=== PATIENT | male | born 1955 | race Caucasian/White ===

== ENCOUNTER 2016-05-16 10:43 | Inpatient (IN) | payer OTHER, MEDICARE ==
[~2016-05-16] VITALS: Ht 195.6 cm; Wt 99.0 kg
[~2016-05-16 10:43] MED LIST: ARIP1TAB87 PO; ASPI325T PO; DILT30 PO; SERT100 PO
[2016-05-16 10:50] VITALS: BP 138/86; PULSE 76; RESP 16; TEMP 98.7; O2SAT 98
[2016-05-16] MEDS ORDERED: TETANUS/DIPHTHERIA TOXOID ADULT 0.5 ML VIAL IM ONE (11:15)
[2016-05-16] MEDS ORDERED: CLINDAMYCIN INJ 600 MG in SODIUM CHLORIDE 0.9% INJ 100 ML IV ONE (11:15)
[2016-05-16] MEDS ORDERED: KETOROLAC TROMETHAMINE 30 MG/ML (IVP) VIAL IVP ONE (11:15)
[2016-05-16 11:39] LABS: AUTOMATED NEUTROPHIL # 9.3 TH/MM3 (1.8-7.7); BASOPHIL # 0.1 TH/MM3 (0-0.2); BASOPHIL % 0.7 % (0.0-2.0); EOSINOPHIL % 0.4 % (0.0-4.0); HEMATOCRIT 41.4 % (39.0-51.0); HEMO FLAGS DIFF FINAL; LYMPHOCYTE # 1.5 TH/MM3 (1.0-4.8); MEAN CELL VOLUME 82.4 FL (80.0-100.0); MEAN CORPUSCULAR HEMOGLOBIN 28.2 PG (27.0-34.0); MEAN CORPUSCULAR HGB CONC 34.2 % (32.0-36.0); MONO % 7.9 % (0.0-8.0); PLATELET COUNT 189 TH/MM3 (150-450); RED BLOOD COUNT 5.02 MIL/MM3 (4.50-5.90); RED CELL DISTRIBUTION WIDTH 13.7 % (11.6-17.2); WHITE BLOOD COUNT 11.9 TH/MM3 (4.0-11.0)
--- NOTE | 2016-05-16 11:41 | PD ---
HPI Chief Complaint: Skin Problem Time Seen by Provider: 11:37 Travel History International Travel<30 days: No Contact w/Intl Traveler<30days: No Traveled to known affect area: No History of Present Illness HPI 60-year-old male that presents to the ED for evaluation of possible infection to his right second toe and foot. Patient has had this for almost a week now. Per patient he has a history of cellulitis in that same toe after an injury about 10 years ago. Per patient he had 2 surgeries on it and he never lost a toe. Per patient since Thursday he was using some sandals and per patient he believes that this irritated his skin causing the infection. He denies any history of IV drug abuse. He does have a history of schizophrenia and states that he takes medications for this. He has no duco polisher. He came here with family member who was able to give him a ride here. He has an allergy to niacin. States the pain is 10 out of 10 and gets worse with touch. Denies any chest pain or shortness of breath. No fevers chills or sweats. Patient able to move the toes with exception of the second toe where most of the infection. PFSH Past Medical History Arthritis: No Asthma: No Blood Disorders: No Depression: Yes Heart Rhythm Problems: No Cancer: No Cardiovascular Problems: No High Cholesterol: No Chest Pain: No Congestive Heart Failure: No COPD: No Cerebrovascular Accident: No Endocrine: No GERD: No Genitourinary: No Headaches: No Hepatitis: No Hiatal Hernia: No Hypertension: No Immune Disorder: No Musculoskeletal: No Neurologic: No Psychiatric: Yes Reproductive: No Respiratory: No Migraines: No Myocardial Infarction: No Renal Failure: No Schizophrenia: Yes (PARANOID) Seizures: No Sleep Apnea: No Ulcer: No Past Surgical History Abdominal Surgery: No AICD: No Appendectomy: No Arteriovenous Shunt: No Cardiac Surgery: No Cholecystectomy: No Ear Surgery: No Endocrine Surgery: No Eye Surgery: No Genitourinary Surgery: No Gynecologic Surgery: No Insulin Pump: No Joint Replacement: No Oral Surgery: No Pacemaker: No Thoracic Surgery: No Tonsillectomy: Yes Other Surgery: Yes Social History Alcohol Use: No Tobacco Use: Yes (PACK A DAY) Substance Use: No Allergies-Medications (Allergen,Severity, Reaction): Coded Allergies: Niacin (Verified Allergy, Intermediate, 04/17/15) Reported Meds & Prescriptions Reported Meds & Active Scripts Active Diltiazem Hcl (Diltiazem HCl) 30 Mg Tab 30 Mg PO QID 30 Days Aspirin 325 Mg Tab (Aspirin) 325 Mg Tab 325 Mg PO DAILY Reported Zoloft (Sertraline HCl) 100 Mg Tab 100 Mg PO DAILY Abilify 15 Mg Tab (Aripiprazole) 15 Mg Tab 30 Mg PO DAILY Review of Systems Except as stated in HPI: all other systems reviewed are Neg Physical Exam Narrative GENERAL: SKIN: Warm and dry. HEAD: Atraumatic. Normocephalic. EYES: Pupils equal and round. No scleral icterus. No injection or drainage. ENT: No nasal bleeding or discharge. Mucous membranes pink and moist. Tongue is midline. No Uvula deviation. NECK: Trachea midline. No JVD. CARDIOVASCULAR: Regular rate and rhythm. No murmurs, S3, S4. RESPIRATORY: No accessory muscle use. Clear to auscultation. Breath sounds equal bilaterally. GASTROINTESTINAL: Abdomen soft, non-tender, nondistended. Hepatic and splenic margins not palpable. MUSCULOSKELETAL: Extremities without clubbing, cyanosis, or edema. No obvious deformities. Full range of motion of the lower extremities bilaterally. Patient does have significant swelling on the right second toe which is twice the size of the other toes. Purulence and erythema noted. Very warm to touch. Tender to touch. Patient does have 2+ pulses bilaterally. Patient can move the toes secondary to the swelling. Erythema is going through the dorsal aspect of the foot. NEUROLOGICAL: Awake and alert. No obvious cranial nerve deficits. Motor grossly within normal limits. Five out of 5 muscle strength in the arms and legs. Normal speech. PSYCHIATRIC: Appropriate mood and affect; insight and judgment normal. Data Data Last Documented VS Vital Signs Date Time Temp Pulse Resp B/P Pulse Ox O2 Delivery O2 Flow Rate FiO2 05/16/16 10:50 98.7 76 16 138/86 98 Orders Basic Metabolic Panel (Bmp) (05/16/16 11:08) Complete Blood Count With Diff (05/16/16 11:08) Blood Culture (05/16/16 11:08) Wound Culture And Gram Stain (05/16/16 11:08) Iv Access Insert/Monitor (05/16/16 11:08) Wound Care (05/16/16 11:08) Ketorolac Inj (Toradol Inj) (05/16/16 11:15) Clindamycin Inj (Cleocin Inj) (05/16/16 11:15) Tetanus/Diphtheria Tox Adult (Tetanus/Di (05/16/16 11:15) C-Reactive Protein (Crp) (05/16/16 11:08) Foot, Complete ([id number]) (05/16/16 ) Lactic Acid (05/16/16 11:23) Admit Order (Ed Use Only) (05/16/16 12:41) Consult Podiatry (05/16/16 ) Labs Laboratory Tests Test 05/16/16 11:20 White Blood Count 11.9 TH/MM3 Red Blood Count 5.02 MIL/MM3 Hemoglobin 14.1 GM/DL Hematocrit 41.4 % Mean Corpuscular Volume 82.4 FL Mean Corpuscular Hemoglobin 28.2 PG Mean Corpuscular Hemoglobin 34.2 % Concent Red Cell Distribution Width 13.7 % Platelet Count 189 TH/MM3 Mean Platelet Volume 9.3 FL Neutrophils (%) (Auto) 78.0 % Lymphocytes (%) (Auto) 13.0 % Monocytes (%) (Auto) 7.9 % Eosinophils (%) (Auto) 0.4 % Basophils (%) (Auto) 0.7 % Neutrophils # (Auto) 9.3 TH/MM3 Lymphocytes # (Auto) 1.5 TH/MM3 Monocytes # (Auto) 0.9 TH/MM3 Eosinophils # (Auto) 0.0 TH/MM3 Basophils # (Auto) 0.1 TH/MM3 CBC Comment DIFF FINAL Differential Comment Sodium Level 136 MEQ/L Potassium Level 3.6 MEQ/L Chloride Level 100 MEQ/L Carbon Dioxide Level 30.8 MEQ/L Anion Gap 5 MEQ/L Blood Urea Nitrogen 18 MG/DL Creatinine 1.15 MG/DL Estimat Glomerular Filtration 65 ML/MIN Rate Random Glucose 109 MG/DL Lactic Acid Level 0.9 mmol/L Calcium Level 8.5 MG/DL C-Reactive Protein 7.06 MG/DL MDM Medical Decision Making Medical Screen Exam Complete: Yes Emergency Medical Condition: Yes Medical Record Reviewed: Yes Interpretation(s) CBC & BMP Diagram 05/16/16 11:20 CRP highly elevated xray of the right foot showed bony changes on the 2nd toe concerning for osteomyelitis Differential Diagnosis Cellulitis versus ostium myelitis versus MRSA Narrative Course 60-year-old male that presents to the ED for evaluation of right toe infection. Patient was properly examined and was found to have signs and symptoms consistent with gangrene and likely also myelitis. Patient will likely require surgery for amputation versus long stay of antibiotics. Initial workup was started. Patient was started on IV antibiotics and pain medication. Last and shows slightly elevated as well as a CRP slightly elevated at 7. X-ray did show similar changes to the second toe. Because of significant infection and history of do recommend admission. Patient is agreeable with this plan. Call was placed to podiatry and [facility] as patient is [employer].. Dr. Adams called back and agrees to admission. I put a consult to podiatry Dr. Davidson who I contacted and recommends admission to medicine for surgery tomorrow, IV antibiotics, no MRI. Diagnosis Primary Impression: Osteomyelitis Qualified Code: M86.171 - Acute osteomyelitis of right foot Additional Impression: Cellulitis Qualified Code: L03.115 - Cellulitis of right lower extremity Admitting Information Admitting Physician Requests: Admit Ugo Wilson May 16, 2016 11:41
[2016-05-16 11:55] LABS: BICARBONATE 30.8 MEQ/L (21.0-32.0); POTASSIUM 3.6 MEQ/L (3.5-5.1)
--- NOTE | 2016-05-16 12:48 | RADRPT ---
EXAM DATE/TIME: 05/16/2016 11:37 [facility] COMPARISON: No previous studies available for comparison. INDICATIONS: Right foot pain with swelling and ulcerations on toes. MEDICAL HISTORY: None. SURGICAL HISTORY: Right toes surgery 30 years ago x 2. ENCOUNTER: Initial ACUITY: >1 year PAIN SCORE: 10/10 LOCATION: Right Foot/toes. FINDINGS: There moderate hallux valgus deformity evident. There is destructive process involving the distal tuft of the second toe. Deformity is seen at the s econd interphalangeal joint. Findings are suspicious for osteomyelitis. CONCLUSION: Findings suspicious for osteomyelitis second toe. Mario Chavez MD FACR on May 16, 2016 at 12:08 Board Certified Radiologist. This report was verified electronically.
--- NOTE | 2016-05-16 13:14 | HHI.HP ---
[facility] Admission Diagnosis right second toe osteomyelitis with cellulitis Diagnoses: (1) Gangrene of toe (2) Cellulitis Chief Complaint: right painful second toe Travel History International Travel<30 Days: No Contact w/Intl Traveler <30 Da: No Traveled to Known Affected Are: No History of Present Illness 60-year-old male with a history of schizophrenia, known history of right second toe infection present to the ED for evaluation of worsening right second toe pain rated 10 out of 10 in intensity associated with swelling, redness and purulent discharge. Denies any febrile episode.Patient states he had two operations on his right 2nd toe over the past 12 years with significant improvement. However about 1 week ago he noticed increased swelling, redness and purulent discharge. He tried peroxide without any improvement. He noticed pain with ambulation and weight bearing on the right foot.patient denies any GI bleeding, SOB or chest pain Review of Systems Other Other 12 systems reviewed and are negative except for the one mentioned in the history of present illness Past Family Social History Past Medical History Schizophrenia, tobacco dependency Past Surgical History Patient had a tonsillectomy Reported Medications Diltiazem Hcl (Diltiazem HCl) 30 Mg Tab 30 Mg PO QID 30 Days Aspirin 325 Mg Tab (Aspirin) 325 Mg Tab 325 Mg PO DAILY Reported Zoloft (Sertraline HCl) 100 Mg Tab 100 Mg PO DAILY Abilify 15 Mg Tab (Aripiprazole) 15 Mg Tab 30 Mg PO DAILY Allergies: Coded Allergies: Niacin (Verified Allergy, Intermediate, 04/17/15) Family History Father had a heart attack in his 70s Social History Alcohol Use: No Tobacco Use: Yes (PACK A DAY) Substance Use: No Physical Exam Vital Signs Vital Signs Date Time Temp Pulse Resp B/P Pulse Ox O2 Delivery O2 Flow Rate FiO2 05/16/16 10:50 98.7 76 16 138/86 98 Physical Exam GENERAL: This is a well-nourished, well-developed patient, in no apparent distress. SKIN: swelling on the right second toe which is twice the size of the other toes. Purulence and erythema noted. Very warm to touch. Erythema extending through the dorsal aspect of the foot HEAD: Atraumatic. Normocephalic. No temporal or scalp tenderness. EYES: Pupils equal round and reactive. Extraocular motions intact. No scleral icterus. No injection or drainage. ENT: Nose without bleeding, purulent drainage or septal hematoma. Throat without erythema, tonsillar hypertrophy or exudate. Uvula midline. Airway patent. NECK: Trachea midline. No JVD or lymphadenopathy. Supple, nontender, no meningeal signs. CARDIOVASCULAR: Regular rate and rhythm without murmurs, gallops, or rubs. RESPIRATORY: Clear to auscultation. Breath sounds equal bilaterally. No wheezes , rales, or rhonchi. GASTROINTESTINAL: Abdomen soft, non-tender, nondistended. No hepato-splenomegaly , or palpable masses. No guarding. MUSCULOSKELETAL: Extremities without clubbing, cyanosis, or edema. No joint tenderness, effusion, or edema noted. No calf tenderness. Negative Homans sign bilaterally. NEUROLOGICAL: Awake and alert. Cranial nerves II through XII intact. Motor and sensory grossly within normal limits. Five out of 5 muscle strength in all muscle groups. Normal speech. Laboratory Laboratory Tests Test 05/16/16 11:20 White Blood Count 11.9 Red Blood Count 5.02 Hemoglobin 14.1 Hematocrit 41.4 Mean Corpuscular Volume 82.4 Mean Corpuscular Hemoglobin 28.2 Mean Corpuscular Hemoglobin 34.2 Concent Red Cell Distribution Width 13.7 Platelet Count 189 Mean Platelet Volume 9.3 Neutrophils (%) (Auto) 78.0 Lymphocytes (%) (Auto) 13.0 Monocytes (%) (Auto) 7.9 Eosinophils (%) (Auto) 0.4 Basophils (%) (Auto) 0.7 Neutrophils # (Auto) 9.3 Lymphocytes # (Auto) 1.5 Monocytes # (Auto) 0.9 Eosinophils # (Auto) 0.0 Basophils # (Auto) 0.1 CBC Comment DIFF FINAL Differential Comment Sodium Level 136 Potassium Level 3.6 Chloride Level 100 Carbon Dioxide Level 30.8 Anion Gap 5 Blood Urea Nitrogen 18 Creatinine 1.15 Estimat Glomerular Filtration 65 Rate Random Glucose 109 Lactic Acid Level 0.9 Calcium Level 8.5 C-Reactive Protein 7.06 Date/Time Procedure Status Source Growth 05/16/16 11:20 Aerobic Blood Culture Received Blood Peripheral Pending 1/6/17 11:20 Anaerobic Blood Culture Received Blood Peripheral Pending Result Diagram: 05/16/16 1120 05/16/16 1120 Assessment and Plan Problem List: (1) Cellulitis ICD Code: L03.90 Status: Acute (2) Gangrene of toe ICD Code: I96 Status: Acute (3) Osteomyelitis ICD Code: M86.9 Status: Acute Assessment and Plan 60-year-old male with Right second toe gangrene with osteomyelitis and cellulitis of the foot: Outside radiographic studies reveals osteomyelitis of phalanx .Status post Clindamycin IV 1, start vancomycin and Zosyn pending culture report. Podiatry consulted and plan for amputation of the toe tomorrow 05/17/16. Check CHALO. Provide pain medication accordingly. Will keep nothing by mouth after midnight Leukocytosis: Secondary to above infectious process, monitor CBC History of schizophrenia: Resume outpatient medications DVT prophylaxis: Heparin Code Status Full code Discussed Condition With Patient, ED physician Physician Certification 2 Midnight Certification Type: Admission for Inpatient Services Order for Inpatient Services The services are ordered in accordance with Medicare regulations or non- Medicare payer requirements, as applicable. In the case of services not specified as inpatient-only, they are appropriately provided as inpatient services in accordance with the 2-midnight benchmark. Estimated LOS (days): 2 days is the estimated time the patient will need to remain in the hospital, assuming treatment plan goals are met and no additional complications. Post-Hospital Plan: Not yet determined Problem Qualifiers (1) Cellulitis: Qualified Code: L03.115 - Cellulitis of right lower extremity (2) Osteomyelitis: Qualified Code: M86.171 - Acute osteomyelitis of right foot Jeremiah Adams MD May 16, 2016 13:14 Jeremiah Adams MD May 16, 2016 13:14
--- NOTE | 2016-05-16 14:08 | PD.POD.CON ---
Patient Intake Chief Complaint Infection and gangrene second toe right foot Consult Requested by Dr. Adams Reason for Consult Evaluation and treatment of infection right second toe Primary Care Physician [facility] History of Present Illness Patient is a 60-year-old male who presented to the emergency department with gangrene and infection of the second toe of the right foot. He states is been getting worse over the last 3 days. He states he has had surgery on the toe many times in the past and saw [place]. Radiographs show osteomyelitis of phalanx. There is a strong necrotic odor coming from the toe. Coded Allergies: Niacin (Verified Allergy, Intermediate, 04/17/15) Preferred Language to Discuss: Andorran Barriers to Learning: None Teaching Method: Discussion Vital Signs Date Time Temp Pulse Resp B/P Pulse Ox O2 Delivery O2 Flow Rate FiO2 05/16/16 10:50 98.7 76 16 138/86 98 Pain scale used: 0-10 numeric scale Pain score: 1 Medications Current Medications Ketorolac Tromethamine 30 mg 30 mg ONCE ONCE IVP ; Start 05/16/16 at 11:15; Stop 05/16/16 at 11:16; Status DC Clindamycin Phosphate/Sodium Chloride (Cleocin Inj/NS Inj) 104 ml @ 200 mls/hr ONCE ONCE IV ; Start 05/16/16 at 11:15; Stop 05/16/16 at 11:46; Status DC Tetanus/ Diphtheria Toxoids (Tetanus/ Diphtheria Tox Adult) 0.5 ml ONCE ONCE IM ; Start 05/16/16 at 11:15; Stop 05/16/16 at 11:16; Status DC Past, Family & Social History Past Medical History [facility] Reviewed: Yes Review of Systems Constitutional: COMPLAINS OF: Good general health Exam-Podiatry Constitutional General appearance: comfortable Nutritional status: normal Orientation: alert and oriented x3 Dermatological Exam Skin Temp - Right: Cool Skin Texture - Right: Within Normal Limits Skin Elasticity - Right: Within Normal Limits Skin Tugor - Right: Within Normal Limits Hair Growth - Right: Within Normal Limits Pigmentation - Right: Within Normal Limits Skin Temp - Left: Cool Skin Texture - Left: Within Normal Limits Skin Elasticity - Left: Within Normal Limits Skin Tugor - Left: Within Normal Limits Hair Growth - Left: Within Normal Limits Pigmentation - Left: Within Normal Limits Vascular/Lymphatic Exam Details All pulses are diminished bilateral feet Neurologic Exam Details No neurological deficit Musculoskeletal Exam Details Necrotic gangrenous second toe right foot with gangrenous changes and osteomyelitis on x-ray Muscle Strength Dorsiflexion (Right): Normal Plantarflexion (Right): Normal Inversion (Right): Normal Eversion (Right): Normal Digital (Right): Normal Dorsiflexion (Left): Normal Plantarflexion (Left): Normal Inversion (Left): Normal Eversion (Left): Normal Digital (Left): Normal Foot Range of Motion Dorsiflexion (Right): Normal Plantarflexion (Right): Normal Inversion (Right): Normal Eversion (Right): Normal Digital (Right): Normal Dorsiflexion (Left): Normal Plantarflexion (Left): Normal Inversion (Left): Normal Eversion (Left): Normal Digital (Left): Normal Joint Instability Hammer Toe: Toe #2 (R) Lab and Radiology Results Laboratory Laboratory Tests Test 05/16/16 11:20 White Blood Count 11.9 TH/MM3 Red Blood Count 5.02 MIL/MM3 Hemoglobin 14.1 GM/DL Hematocrit 41.4 % Mean Corpuscular Volume 82.4 FL Mean Corpuscular Hemoglobin 28.2 PG Mean Corpuscular Hemoglobin 34.2 % Concent Red Cell Distribution Width 13.7 % Platelet Count 189 TH/MM3 Mean Platelet Volume 9.3 FL Neutrophils (%) (Auto) 78.0 % Lymphocytes (%) (Auto) 13.0 % Monocytes (%) (Auto) 7.9 % Eosinophils (%) (Auto) 0.4 % Basophils (%) (Auto) 0.7 % Neutrophils # (Auto) 9.3 TH/MM3 Lymphocytes # (Auto) 1.5 TH/MM3 Monocytes # (Auto) 0.9 TH/MM3 Eosinophils # (Auto) 0.0 TH/MM3 Basophils # (Auto) 0.1 TH/MM3 CBC Comment DIFF FINAL Differential Comment Laboratory Tests Test 05/16/16 11:20 Sodium Level 136 MEQ/L Potassium Level 3.6 MEQ/L Chloride Level 100 MEQ/L Carbon Dioxide Level 30.8 MEQ/L Anion Gap 5 MEQ/L Blood Urea Nitrogen 18 MG/DL Creatinine 1.15 MG/DL Estimat Glomerular Filtration 65 ML/MIN Rate Random Glucose 109 MG/DL Lactic Acid Level 0.9 mmol/L Calcium Level 8.5 MG/DL C-Reactive Protein 7.06 MG/DL Microbiology Date/Time Procedure Status Source Growth 05/16/16 11:15 Aerobic Blood Culture Received Blood Peripheral Pending 05/16/16 11:15 Anaerobic Blood Culture Received Blood Peripheral Pending 05/16/16 11:20 Aerobic Blood Culture Received Blood Peripheral Pending 05/16/16 11:20 Anaerobic Blood Culture Received Blood Peripheral Pending Assessment/Plan Problem List: (1) Osteomyelitis Status: Acute (2) Gangrene of toe Status: Acute Additional Plans & Procedures PLAN: We'll go to the OR tomorrow morning at 8 AM for an amputation of the second toe right foot. The incision site will be left open for packing. Discussed planned procedures with the patient. He is agreeable to proceed. I will obtain arterial segmental Dopplers to evaluate his vascular status. Consent orders done. Discussed with nurse. Nothing by mouth after midnight. Problem Qualifiers (1) Osteomyelitis: Qualified Code: M86.171 - Acute osteomyelitis of right foot Jeremiah Davidson DPM May 16, 2016 14:08
[2016-05-16] MEDS ORDERED: SENNOSIDES 8.6 MG TAB PO PRN (14:15)
[2016-05-16] MEDS ORDERED: ENALAPRILAT 1.25 MG/ML VIAL IV PUSH PRN (14:15)
[2016-05-16] MEDS ORDERED: ACETAMINOPHEN/HYDROcodone 325 MG/5 MG TAB PO PRN (14:15)
[2016-05-16] MEDS ORDERED: NALOXONE HCL 0.4 MG/ML AMP IV PRN (14:15)
[2016-05-16] MEDS ORDERED: RESP: ALBUTEROL 2.5 MG/IPRATROPIUM 0.5 MG NEB (PRN) NEB (14:15)
[2016-05-16] MEDS ORDERED: ONDANSETRON HCL 4 MG/2 ML VIAL IVP PRN (14:15)
[2016-05-16] MEDS ORDERED: SODIUM CHLORIDE 0.9% FLUSH 5 ML FLUSH FLUSH PRN (14:15)
[2016-05-16] MEDS ORDERED: ACETAMINOPHEN 325 MG TAB PO PRN ×2 (14:15)
[2016-05-16] MEDS ORDERED: Vancomycin Consult Pharmacy 1 EA OTHER SCH (14:15)
[2016-05-16] MEDS ORDERED: VANCOMYCIN INJ 1,000 MG in SODIUM CHLOR 0.9% 250 ML INJ 250 ML IV SCH (14:15)
--- NOTE | 2016-05-16 14:32 | RADRPT ---
EXAM DATE/TIME: 05/16/2016 14:19 [facility] COMPARISON: CHEST PA & LAT, April 17, 2015, 17:57. INDICATIONS : Shortness of breath. MEDICAL HISTORY : None. SURGICAL HISTORY : None. ENCOUNTER: Initial ACUITY: 1 day PAIN SCORE: 5/10 LOCATION: chest FINDINGS: PA and lateral views of the chest demonstrate the lungs to be symmetrically aerated without evidence of mass, infiltrate or effusion. The cardiomediastinal contours are unremarkable. Degenerative gauthier ges are seen in the thoracic spine. CONCLUSION: Negative for an acute process Mario Chavez MD FACR on May 16, 2016 at 14:29 Board Certified Radiologist. This report was verified electronically.
[2016-05-16] MEDS: VANCOMYCIN INJ 1,500 MG in SODIUM CHLORID 0.9% 500 ML INJ 500 ML IV SCH (16:00)
[2016-05-16] MEDS: HEPARIN SODIUM - SQ 10,000 UNITS/ML VIAL SQ SCH ×2 (16:26→22:15)
[2016-05-16 18:56] VITALS: BP 109/69; PULSE 62; RESP 18; O2SAT 99
[2016-05-16] MEDS ORDERED: ZOLO100T PO (18:56)
[2016-05-16] MEDS ORDERED: ABIL30TA2 PO (18:56)
[2016-05-16] MEDS ORDERED: MELO-1 PO (18:56)
[2016-05-16 19:00] VITALS: BP 109/69; PULSE 55; RESP 14; O2SAT 98
[2016-05-16 21:00] VITALS: BP 123/85; PULSE 60; RESP 21; TEMP 96.1; O2SAT 98
[2016-05-16] MEDS: LACTOBACILLUS ACIDOPHILUS TAB PO SCH (21:57)
[2016-05-16] MEDS ORDERED: VANCOMYCIN 1,000 MG/NS 250 ML IV ONE ×2 (22:00)
[2016-05-16] MEDS: SODIUM CHLORIDE 0.9% FLUSH 5 ML FLUSH FLUSH SCH (22:13)
[2016-05-16] MEDS: ACETAMINOPHEN/HYDROcodone 325 MG/7.5 MG TAB PO PRN (22:16)
[2016-05-16] MEDS: PIPERACIL-TAZO 3.375 GM PREMIX 50 ML IV SCH (22:26)
[2016-05-16] MEDS ORDERED: INSULIN HUMAN REGULAR 1,000 UNITS/10 ML VIAL SQ PRN (23:15)
[2016-05-16] MEDS: SODIUM CHLORID 0.9% 500 ML IV SCH (23:15)
[2016-05-16] MEDS ORDERED: METOPROLOL TARTRATE 25 MG TAB PO PRN (23:15)
[2016-05-16] MEDS: LACTATED RINGER'S 1000 ML IV SCH (23:15)
[2016-05-17] VITALS: BP_SYST 101; BP_SYST 102; BP_DIAS 56; BP_DIAS 61; PULSE 69; PULSE 80; RESP 19; RESP 20; TEMP 98.3; TEMP 98.6; O2SAT 96; O2SAT 99
[2016-05-17] MEDS: VANCOMYCIN INJ 1,500 MG in SODIUM CHLORID 0.9% 500 ML INJ 500 ML IV SCH ×2 (03:31→16:56)
[2016-05-17] MEDS: PIPERACIL-TAZO 3.375 GM PREMIX 50 ML IV SCH ×3 (03:32→21:00)
[2016-05-17 04:00] VITALS: BP 102/61; PULSE 68; RESP 20; TEMP 98.5; O2SAT 95
[2016-05-17] MEDS: HEPARIN SODIUM - SQ 10,000 UNITS/ML VIAL SQ SCH (04:32)
[2016-05-17 04:59] LABS: BASOPHIL # 0.1 TH/MM3 (0-0.2); BASOPHIL % 0.8 % (0.0-2.0); EOSINOPHIL # 0.2 TH/MM3 (0-0.4); EOSINOPHIL % 1.6 % (0.0-4.0); HEMATOCRIT 37.1 % (39.0-51.0); HEMO FLAGS DIFF FINAL; LYMPHOCYTE # 2.2 TH/MM3 (1.0-4.8); MEAN CELL VOLUME 82.3 FL (80.0-100.0); MEAN CORPUSCULAR HEMOGLOBIN 28.7 PG (27.0-34.0); MEAN CORPUSCULAR HGB CONC 34.9 % (32.0-36.0); MONO % 8.9 % (0.0-8.0); NEUT % 64.7 % (16.0-70.0); PLATELET COUNT 182 TH/MM3 (150-450); RED CELL DISTRIBUTION WIDTH 13.5 % (11.6-17.2); WHITE BLOOD COUNT 9.2 TH/MM3 (4.0-11.0)
[2016-05-17 05:16] LABS: ALT (GPT) 19 U/L (12-78); ANION GAP 4 MEQ/L (5-15); AST (GOT) 9 U/L (15-37); BICARBONATE 31.8 MEQ/L (21.0-32.0); BLOOD UREA NITROGEN 21 MG/DL (7-18); CHLORIDE 104 MEQ/L (98-107); GLOMERULAR FILTRATION RATE 55 ML/MIN (>89); POTASSIUM 4.3 MEQ/L (3.5-5.1); SODIUM (NA) 140 MEQ/L (136-145)
[2016-05-17 05:17] LABS: ALKALINE PHOSPHATASE 129 U/L (45-117); TOTAL BILIRUBIN ADULT 0.6 MG/DL (0.2-1.0)
[2016-05-17 05:23] LABS: INTERNATIONAL NORMALIZED RATIO 1.1 RATIO; PROTHROMBIN TIME - PATIENT 11.8 SEC (9.8-11.6)
[2016-05-17 08:00] VITALS: BP 113/64; PULSE 63; RESP 17; TEMP 98.2; O2SAT 96
[2016-05-17] MEDS ORDERED: BUPIVACAINE HCL PF 0.5% 30 ML VIAL ONE (08:53)
[2016-05-17] MEDS: SODIUM CHLORIDE 0.9% FLUSH 5 ML FLUSH FLUSH SCH ×2 (08:54→21:00)
[2016-05-17] MEDS: LACTOBACILLUS ACIDOPHILUS TAB PO SCH ×2 (08:54→20:59)
--- NOTE | 2016-05-17 09:13 | PD.OP ---
Operative Report Date of Surgery: May 17, 2016 Preoperative Diagnosis: (1) Gangrene of toe (2) Osteomyelitis Second toe right foot Postoperative Diagnosis: (1) Osteomyelitis (2) Gangrene of toe Second toe right foot Procedure: Amputation of second toe right foot Anesthesia: General anesthesia Surgeon: Jeremiah Davidson DPM [employer] Supervisor(s): None Operation and Findings: Patient is brought to the operating room and placed on the operating table in a supine position. Patient was given general anesthesia. The right foot was prepped and draped in the usual sterile manner. After the appropriate timeout was performed to attention was directed to the second toe the right foot which was noted to have gangrene and osteomyelitis on radiographs. At this time to semi-elliptical incisions were made at the base of the second toe at the metatarsal phalangeal joint. The incisions were deepened using sharp and blunt dissection taking care to retracting all vital structures and ligating or Bovie any bleeding vessels. Incision was deepened in the second toe was disarticulated at the metatarsal phalangeal joint. Deep cultures and sensitivities were obtained of the remaining foot. The area flushed with copious amounts of sterile saline. The area was anesthetized with 10 cc of 0.5 % Marcaine. The incision was packed with Maxorb extra AG. The incision site was dressed with 4 x 4's and Juan and an Joseph bandage. Second toe was sent to pathology Estimated blood loss was less than 25 cc. Deep cultures and sensitivities were obtained. Sponge and instrument count was noted to be correct. Patient tolerated the procedure and anesthesia well and left the OR to PACU in apparent satisfactory condition with all vital signs stable endovascular status to the remaining toes intact. Jeremiah Davidson DPM May 17, 2016 09:13
[2016-05-17] MEDS ORDERED: HYDROmorphone HCL 2 MG TAB PO PRN (09:15)
[2016-05-17] MEDS ORDERED: NALOXONE HCL 0.4 MG/ML AMP IV PRN (09:15)
[2016-05-17] MEDS ORDERED: HYDROmorphone HCL PF 1 MG/ML VIAL IV PRN (09:15)
[2016-05-17] MEDS ORDERED: SODIUM CHLORIDE 0.9% FLUSH 5 ML FLUSH IVF PRN (09:15)
[2016-05-17] MEDS ORDERED: Post-op Orders (for Pharmacy) MISC XX ONE (09:15)
[2016-05-17] MEDS ORDERED: MIDAZOLAM HCL 2 MG/2 ML VIAL ONE (09:19)
[2016-05-17] MEDS ORDERED: MORPHINE SULFATE 4 MG/ML INJ ONE (09:20)
[2016-05-17] MEDS ORDERED: DO NOT ADM ANY ANTICOAGULANT DRUGS XX PRN (10:30)
[2016-05-17] MEDS: ACETAMINOPHEN 1000 MG/100 ML VIAL IV SCH ×3 (10:36→21:00)
[2016-05-17] MEDS: ACETAMINOPHEN/HYDROcodone 325 MG/7.5 MG TAB PO PRN ×3 (10:36→18:27)
--- NOTE | 2016-05-17 10:39 | HHI.PR ---
Subjective Remarks Follow-up right second toe osteomyelitis and foot cellulitis 05/17/16-patient seen and examined, he returned from the OR as patient is now s/ p Amputation of second toe right foot . Stable and pain currently controlled. Objective Vitals Vital Signs Date Time Temp Pulse Resp B/P Pulse Ox O2 Delivery O2 Flow Rate FiO2 05/17/16 09:30 98.6 60 14 101/59 97 Nasal Cannula 2 05/17/16 09:15 59 14 108/72 97 Nasal Cannula 2 05/17/16 09:13 99.1 60 14 109/74 97 Nasal Cannula 2 05/17/16 08:00 98.2 63 17 113/64 96 05/17/16 04:00 98.5 68 20 102/61 95 05/17/16 00:00 98.3 69 19 102/61 96 05/16/16 21:00 96.1 60 21 123/85 98 05/16/16 19:00 55 14 109/69 98 Room Air 05/16/16 18:56 62 18 109/69 99 Room Air 05/16/16 10:50 98.7 76 16 138/86 98 I/O 05/16/16 05/16/16 05/16/16 05/17/16 05/17/16 05/17/16 07:00 15:00 23:00 07:00 15:00 23:00 Intake Total 240 ml 240 ml 500 ml Output Total 25 ml Balance 240 ml 240 ml 475 ml Intake Oral 240 ml 240 ml Other 500 ml Output Estimated Blood Loss 25 ml # Voids 1 1 # Bowel Movements 0 0 Result Diagram: 05/17/16 0402 05/17/16 0402 Imaging Last Impressions Foot X-Ray 05/16/16 0000 Signed Impressions: Service Date/Time: Monday, May 16, 2016 11:37 - CONCLUSION: Findings suspicious for osteomyelitis second toe. Mario Chavez MD FACR Chest X-Ray 05/16/16 0000 Signed Impressions: Service Date/Time: Monday, May 16, 2016 14:19 - CONCLUSION: Negative for an acute process Mario Chavez MD FACR Objective Remarks GENERAL: NAD SKIN: Warm and dry. HEAD: Normocephalic. EYES: No scleral icterus. No injection or drainage. NECK: Supple, trachea midline. No JVD or lymphadenopathy. CARDIOVASCULAR: Regular rate and rhythm without murmurs, gallops, or rubs. RESPIRATORY: Breath sounds equal bilaterally. No accessory muscle use. GASTROINTESTINAL: Abdomen soft, non-tender, nondistended. MUSCULOSKELETAL: No cyanosis, or edema. right foot in dressing; s/p right 2nd toe amputation BACK: Nontender without obvious deformity. No CVA tenderness. Procedures s/p Amputation of second toe right foot 05/17/16 A/P Problem List: (1) Cellulitis ICD Code: L03.90 Status: Acute (2) Gangrene of toe ICD Code: I96 Status: Acute (3) Osteomyelitis ICD Code: M86.9 Status: Acute (4) Schizophrenia ICD Code: F20.9 Status: Chronic Assessment and Plan 60-year-old male with Right second toe gangrene with osteomyelitis and cellulitis of the foot: Outside radiographic studies as well as in house Xray revealed osteomyelitis of phalanx .Status post Clindamycin IV 1, currently on vancomycin and Zosyn pending culture report. Podiatry consulted and patient is s/p Amputation of second toe right foot 05/17/16. CHALO pending. Provide pain medication accordingly. Leukocytosis: Secondary to above infectious process however now resolved, monitor CBC Mild acute renal failure: Gentle IV fluid hydration and monitor BUN and creatinine. History of schizophrenia: Resume Abilify and Zoloft this AM DVT prophylaxis: Heparin Problem Qualifiers (1) Cellulitis: Qualified Code: L03.115 - Cellulitis of right lower extremity (2) Osteomyelitis: Qualified Code: M86.171 - Acute osteomyelitis of right foot Jeremiah Adams MD May 17, 2016 10:39
[2016-05-17] MEDS: SODIUM CHLOR 0.9% 1000 ML INJ 1,000 ML IV SCH ×2 (11:15→19:15)
[2016-05-17 12:00] VITALS: BP 138/78; PULSE 63; RESP 18; TEMP 98; O2SAT 98
[2016-05-17] MEDS ORDERED: ONDANSETRON HCL 4 MG/2 ML VIAL IV PUSH ONE (12:00)
[2016-05-17] MEDS ORDERED: PROPOFOL 200 MG/20 ML AMP IV ONE (12:00)
[2016-05-17] MEDS: ARIPiprazole 30 MG TAB PO SCH (13:08)
[2016-05-17] MEDS: SERTRALINE HCL 100 MG TAB PO SCH (13:08)
--- NOTE | 2016-05-17 14:15 | EKG ---
Date Performed: 05/17/2016 Time Performed: 06:15:36 PTAGE: 60 years EKG: Sinus bradycardia. Normal ECG except for rate PREVIOUS TRACING : 04/18/2015 01.43 Since previous tracing, no significant change noted DOCTOR: Logan Patel Interpretating Date/Time 05/17/2016 14:14:55
[2016-05-17] MEDS: SODIUM CHLORID 0.9% 500 ML IV SCH (15:55)
[2016-05-17] MEDS ORDERED: IOHEXOL 350 MG/ML 10 ML VIAL (for RAD DIAG) IV ONE (16:25)
[2016-05-17 16:40] VITALS: O2SAT 94
--- NOTE | 2016-05-17 18:31 | RADRPT ---
EXAM DATE/TIME: 05/16/2016 00:00 [facility] COMPARISON: No previous studies available for comparison. INDICATIONS : RT SECOND TOE OSTEOMYELITIS W/CELLULITIS TECHNIQUE: Five-station segmental examination of the lower extremities was performed. Pulsed-cuff waveform tracings and pressures were recorded. Ankle-brachial indices and toe-brachial indices were calculated. PRESSURES (mmHg): Brachial (arm): Right 91 Lower Thigh: Right 138 Left 140 Calf: Right 133 Left 93 Ankle: Right 131 Left 117 Toe: Left 74 CHALO: Right 1.44 Left 1.29 TBI: Left 0.81 PULSED CUFF WAVEFORMS: Demonstrate normal amplitude bilaterally. CONCLUSION: Toe pressure is would not register on the right side common waveform is. Otherwise unremarkable segme ntal evaluation of the lower extremities. Kentrell Zapata MD on May 17, 2016 at 18:28 Board Certified Radiologist. This report was verified electronically.
--- NOTE | 2016-05-17 19:22 | RADRPT ---
EXAM DATE/TIME: 05/17/2016 16:04 [facility] COMPARISON: No previous studies available for comparison. INDICATIONS : Right foot osteomyelitis; evaluate for occlusion. IV CONTRAST: 99 cc Omnipaque 350 (iohexol) IV RADIATION DOSE: 16.24 CTDIvol (mGy) MEDICAL HISTORY : None SURGICAL HISTORY : Right second toe amputation. ENCOUNTER: Initial ACUITY: 1 day PAIN SCALE: 3/10 LOCATION: Right foot. TECHNIQUE: Volumetric scanning was performed using a multi-row detector CT scanner. The data was post processed with a variety of visualization algorithms including full volume maximum intensity projection, multi -planar sliding thin slab reformation, curved planar reformation, and surface rendering techniques. Using automated exposure control and adjustment of the mA and/or kV according to patient size, radiat ion dose was kept as low as reasonably achievable to obtain optimal diagnostic quality images. FINDINGS: Abdominal aorta and iliacs are widely patent. The aortic visceral vessels are satisfactory in appeara nce. Specifically, the celiac, SMA and ANGUS are patent. A single left renal artery is widely patent. T here are 2 right renal arteries both widely patent. In the pelvis cavity internal iliac vessels are widely patent. The common femorals are healthy in connor earance with incidental note of high bifurcation of the left common femoral artery at the level of th e femoral head. The profundas are widely patent bilaterally. In the legs, the superficial femoral arteries and popliteal arteries are widely patent and unremarkab le. The patient appears to have satisfactory three-vessel calf runoff on both sides. Elsewhere on the exam comment note is made of a right inguinal hernia which contains loops of bowel. No definite evidence of incarceration or obstruction at present. CONCLUSION: Unremarkable CTA runoff exam. Right inguinal hernia containing bowel Kentrell Zapata MD on May 17, 2016 at 19:13 Board Certified Radiologist. This report was verified electronically.
[2016-05-17 20:00] VITALS: BP 96/56; PULSE 54; RESP 18; TEMP 96.8; O2SAT 98
[2016-05-17] MEDS: SODIUM CHLORIDE 0.9% FLUSH 5 ML FLUSH IVF SCH (21:00)
[2016-05-17] MEDS: LACTATED RINGER'S 1000 ML IV SCH (23:15)
[2016-05-18] VITALS (7 sets, daily range): BP systolic 94–120; BP diastolic 50–75; PULSE 50–67; RESP 17–22; TEMP 95.9–98.6; O2SAT 95–100
[2016-05-18] MEDS: SODIUM CHLOR 0.9% 1000 ML INJ 1,000 ML IV SCH ×2 (03:30→08:53)
[2016-05-18] MEDS ORDERED: PHARMACY ORDERED LAB XX ONE (03:45)
[2016-05-18] MEDS: ACETAMINOPHEN 1000 MG/100 ML VIAL IV SCH (04:28)
[2016-05-18] MEDS: VANCOMYCIN INJ 1,500 MG in SODIUM CHLORID 0.9% 500 ML INJ 500 ML IV SCH ×2 (04:52→15:33)
[2016-05-18] MEDS: PIPERACIL-TAZO 3.375 GM PREMIX 50 ML IV SCH ×3 (04:58→19:51)
[2016-05-18 05:42] LABS: AUTOMATED NEUTROPHIL # 5.4 TH/MM3 (1.8-7.7); BASOPHIL # 0.1 TH/MM3 (0-0.2); BASOPHIL % 0.8 % (0.0-2.0); EOSINOPHIL # 0.2 TH/MM3 (0-0.4); EOSINOPHIL % 2.4 % (0.0-4.0); HEMATOCRIT 34.9 % (39.0-51.0); HEMO FLAGS DIFF FINAL; LYMPH % 17.1 % (9.0-44.0); LYMPHOCYTE # 1.3 TH/MM3 (1.0-4.8); MEAN CELL VOLUME 84.3 FL (80.0-100.0); MEAN CORPUSCULAR HEMOGLOBIN 28.3 PG (27.0-34.0); MEAN CORPUSCULAR HGB CONC 33.6 % (32.0-36.0); NEUT % 71.7 % (16.0-70.0); PLATELET COUNT 187 TH/MM3 (150-450); RED BLOOD COUNT 4.14 MIL/MM3 (4.50-5.90); RED CELL DISTRIBUTION WIDTH 13.7 % (11.6-17.2); WHITE BLOOD COUNT 7.5 TH/MM3 (4.0-11.0)
[2016-05-18 06:14] LABS: BICARBONATE 29.6 MEQ/L (21.0-32.0); POTASSIUM 4.5 MEQ/L (3.5-5.1)
[2016-05-18] MEDS: ARIPiprazole 30 MG TAB PO SCH (08:52)
[2016-05-18] MEDS: SERTRALINE HCL 100 MG TAB PO SCH (08:52)
[2016-05-18] MEDS: LACTOBACILLUS ACIDOPHILUS TAB PO SCH ×2 (08:52→19:51)
[2016-05-18] MEDS: SODIUM CHLORIDE 0.9% FLUSH 5 ML FLUSH IVF SCH ×2 (08:52→19:52)
[2016-05-18] MEDS: SODIUM CHLORIDE 0.9% FLUSH 5 ML FLUSH FLUSH SCH ×2 (08:52→19:52)
--- NOTE | 2016-05-18 09:53 | PD.POD ---
Subjective Podiatric Problems History of gangrene and osteomyelitis second toe right foot One day status post amputation of second toe right foot Pain scale used: 0-10 numeric scale Pain score: 1 Remarks Patient is a 60-year-old white male presented with gangrene and osteomyelitis of the second toe with infected right forefoot. Yesterday he underwent an amputation of the second toe with deep culture and sensitivity. The wound was packed open for later closure. There was minimal bleeding noted during surgery so patient was sent for a CTA which showed patent vessels all the way down to the toes. Patient is without complaints of pain or discomfort. He was sleeping when I came into the room. Past Med/Surg/Social History Past Medical History [facility] Reviewed: Yes Social History Smoking Status: Former Smoker Review of Systems Notes No changes in his 14 point review of systems exam since he was seen yesterday Objective Vital Signs Vital Signs Date Time Temp Pulse Resp B/P Pulse Ox O2 Delivery O2 Flow Rate FiO2 05/18/16 08:00 95.9 50 17 114/71 98 05/18/16 05:00 18 05/18/16 04:00 97.0 66 20 96/56 100 05/18/16 00:00 96.9 53 20 94/50 97 05/17/16 21:00 18 05/17/16 20:00 96.8 54 18 96/56 98 05/17/16 16:40 94 21 05/17/16 12:00 98.0 63 18 138/78 98 Coded Allergies: Niacin (Verified Allergy, Intermediate, 04/17/15) Medications and IVs Current Medications Ketorolac Tromethamine 30 mg 30 mg ONCE ONCE IVP Last administered on 16:27; Start 05/16/16 at 11:15; Stop 05/16/16 at 11:16; Status DC Clindamycin Phosphate/Sodium Chloride (Cleocin Inj/NS Inj) 104 ml @ 200 mls/hr ONCE ONCE IV Last administered on 05/16/16 16:52; Start 05/16/16 at 11:15; Stop 05/16/16 at 11:46; Status DC Tetanus/ Diphtheria Toxoids (Tetanus/ Diphtheria Tox Adult) 0.5 ml ONCE ONCE IM Last administered on 05/16/16 18:58; Start 05/16/16 at 11:15; Stop 05/16/16 at 11:16; Status DC IV Flush (NS Flush) 2 ml UNSCH PRN FLUSH FLUSH AFTER USING IV ACCESS; Start 05/16/16 at 14:15 IV Flush (NS Flush) 2 ml BID FLUSH Last administered on 05/18/16 08:52; Start 05/16/16 at 21:00 Acetaminophen (Tylenol) 650 mg Q4H PRN PO TEMP > 100.4; Start 05/16/16 at 14:15 Ondansetron HCl (Zofran Inj) 4 mg Q6H PRN IVP NAUSEA OR VOMITING; Start at 14:15 Sennosides (Senokot) 17.2 mg Q12H PRN PO CONSTIPATION; Start 05/16/16 at 14:15 Heparin Sodium (Porcine) (Heparin Inj) 5,000 units Q8H SQ Last administered on 05/16/16 22:15; Start 05/16/16 at 15:00 Acetaminophen (Tylenol) 650 mg Q6H PRN PO PAIN SCALE 1 TO 2; Start 05/16/16 at 14:15 Acetaminophen/ Hydrocodone Bitart (Berry 5-325 Mg) 1 tab Q4H PRN PO PAIN SCALE 3 TO 5; Start 05/16/16 at 14:15 Acetaminophen/ Hydrocodone Bitart (Berry 7.5-325 Mg) 1 tab Q4H PRN PO PAIN SCALE 6 TO 10 Last administered on 05/17/16 18:27; Start 05/16/16 at 14:15 Naloxone HCl (Narcan Inj) 0.4 mg UNSCH PRN IV SEE LABEL COMMENTS; Start at 14:15 Albuterol/ Ipratropium (Duoneb Neb) 1 ampule Q2HR NEB PRN NEB wheezing; Start 05/16/16 at 14:15 Enalaprilat 1.25 mg 1.25 mg Q6H PRN IV PUSH SBP>160, DBP>90; Start 05/16/16 at 14:15 Pharmacy Profile Note 0 ml @ 0 mls/hr UNSCH OTHER ; Start 05/16/16 at 14:15 Vancomycin HCl 1000 mg/Sodium Chloride 250 ml @ 250 mls/hr Q24H IV ; Start 05/16 at 14:15; Status UNV Piperacillin Sod/ Tazobactam Sod (Zosyn 3.375 Gm Premix) 50 ml @ 100 mls/hr Q8H IV Last administered on 05/18/16 04:58; Start 05/16/16 at 21:00 Lactobacillus Acidophilus 1 tab 1 tab Q12HR PO Last administered on 05/18/16 08 :52; Start 05/16/16 at 21:00 Vancomycin HCl/ Sodium Chloride (Vancomycin Inj/ NS 500 ml Inj) 515 ml @ 250 mls/hr Q12H IV Last administered on 05/18/16 04:52; Start 05/16/16 at 16:00 Miscellaneous Information SPECIFIC LAB TO BE ARNOL... ONCE ONCE XX Last administered on 05/18/16 04:27; Start 05/18/16 at 03:45; Stop 05/18/16 at 03:46; Status DC Vancomycin HCl 1000 mg/Sodium Chloride 250 ml @ 250 mls/hr NOW ONCE IV Last administered on 05/16/16 22:13; Start 05/16/16 at 22:00; Stop 05/16/16 at 22:59; Status DC Lactated Ringer's 1,000 ml @ 30 mls/hr Q24H IV ; Start 05/16/16 at 23:15 Sodium Chloride (NS 500 ml Inj) 500 ml @ 30 mls/hr [id number] IV ; Start 05/16/16 at 23:15; Stop 05/17/16 at 23:14; Status DC Insulin Human Regular (NovoLIN R INJ) See Protocol Table ... UNSCH X1 PRN SQ SEE PROTOCOL; Start 05/16/16 at 23:15; Stop 05/17/16 at 23:14; Status DC Metoprolol Tartrate (Lopressor) 25 mg UNSCH X1 PRN PO SEE LABEL COMMENTS; Start 05/16/16 at 23:15; Stop 05/17/16 at 23:14; Status Cancel Bupivacaine HCl (Marcaine Pf 0.5% Inj) 30 ml STK-MED ONCE .ROUTE Last administered on 05/17/16 08:52; Start 05/17/16 at 08:53; Stop 05/17/16 at 08:56; Status DC IV Flush (NS Flush) 2 ml UNSCH PRN IVF FLUSH AFTER USING IV ACCESS; Start at 09:15 IV Flush (NS Flush) 2 ml BID IVF ; Start 05/17/16 at 21:00 Miscellaneous Information (Post-op Orders (for Pharmacy)) STAT ONCE XX ; Start 05/17/16 at 09:15; Stop 05/17/16 at 09:29; Status DC Acetaminophen (Ofirmev Inj) 1,000 mg Q6H IV Last administered on 05/18/16 04:28 ; Start 05/17/16 at 10:00; Stop 05/18/16 at 04:01; Status DC Hydromorphone HCl (Dilaudid Pf Inj) 1 mg Q3H PRN IV BREAKTHROUGH PAIN; Start at 09:15 Oxycodone HCl (Roxicodone) 5 mg Q4H PRN PO PAIN SCALE 3 TO 5; Start 05/17/16 at 09:15 Hydromorphone HCl (Dilaudid) 2 mg Q4H PRN PO PAIN SCALE 6 TO 10; Start 05/17/16 at 09:15 Naloxone HCl (Narcan Inj) 0.4 mg UNSCH PRN IV SEE LABEL COMMENTS; Start at 09:15 Midazolam HCl (Versed Inj) 2 mg STK-MED ONCE .ROUTE ; Start 05/17/16 at 09:19; Stop 05/17/16 at 09:32; Status DC Fentanyl Citrate (fentaNYL INJ) 100 mcg STK-MED ONCE .ROUTE ; Start 05/17/16 at 09:20; Stop 05/17/16 at 09:32; Status DC Morphine Sulfate (Morphine Inj) 4 mg STK-MED ONCE .ROUTE ; Start 05/17/16 at 09: 20; Stop 05/17/16 at 09:32; Status DC Miscellaneous Information ALL NURSING DEPARTME... UNSCH PRN XX SEE LABEL COMMENTS; Start 05/17/16 at 10:30; Stop 05/18/16 at 10:29 Aripiprazole (Abilify) 30 mg DAILY PO Last administered on 05/18/16 08:52; Start 05/17/16 at 12:00 Sertraline HCl 100 mg 100 mg DAILY PO Last administered on 05/18/16 08:52; Start 05/17/16 at 12:00 Sodium Chloride (NS 1000 ml Inj) 1,000 ml @ 125 mls/hr Q8H IV Last administered on 05/18/16 08:53; Start 05/17/16 at 11:15; Stop 05/18/16 at 12:00 Iohexol (Omnipaque 350 Inj) 99 ml STK-MED ONCE IV Last administered on 16:25; Start 05/17/16 at 16:25; Stop 05/17/16 at 16:26; Status DC Other Results Laboratory Tests Test 05/16/16 05/17/16 05/18/16 11:20 04:02 04:24 White Blood Count 11.9 TH/MM3 9.2 TH/MM3 7.5 TH/MM3 Red Blood Count 5.02 MIL/MM3 4.50 MIL/MM3 4.14 MIL/MM3 Hemoglobin 14.1 GM/DL 12.9 GM/DL 11.7 GM/DL Hematocrit 41.4 % 37.1 % 34.9 % Mean Corpuscular Volume 82.4 FL 82.3 FL 84.3 FL Mean Corpuscular Hemoglobin 28.2 PG 28.7 PG 28.3 PG Mean Corpuscular Hemoglobin 34.2 % 34.9 % 33.6 % Concent Red Cell Distribution Width 13.7 % 13.5 % 13.7 % Platelet Count 189 TH/MM3 182 TH/MM3 187 TH/MM3 Mean Platelet Volume 9.3 FL 9.6 FL 9.5 FL Neutrophils (%) (Auto) 78.0 % 64.7 % 71.7 % Lymphocytes (%) (Auto) 13.0 % 24.0 % 17.1 % Monocytes (%) (Auto) 7.9 % 8.9 % 8.0 % Eosinophils (%) (Auto) 0.4 % 1.6 % 2.4 % Basophils (%) (Auto) 0.7 % 0.8 % 0.8 % Neutrophils # (Auto) 9.3 TH/MM3 6.0 TH/MM3 5.4 TH/MM3 Lymphocytes # (Auto) 1.5 TH/MM3 2.2 TH/MM3 1.3 TH/MM3 Monocytes # (Auto) 0.9 TH/MM3 0.8 TH/MM3 0.6 TH/MM3 Eosinophils # (Auto) 0.0 TH/MM3 0.2 TH/MM3 0.2 TH/MM3 Basophils # (Auto) 0.1 TH/MM3 0.1 TH/MM3 0.1 TH/MM3 CBC Comment DIFF FINAL DIFF FINAL DIFF FINAL Differential Comment Laboratory Tests Test 05/16/16 05/17/16 05/18/16 11:20 04:02 04:24 Sodium Level 136 MEQ/L 140 MEQ/L 142 MEQ/L Potassium Level 3.6 MEQ/L 4.3 MEQ/L 4.5 MEQ/L Chloride Level 100 MEQ/L 104 MEQ/L 107 MEQ/L Carbon Dioxide Level 30.8 MEQ/L 31.8 MEQ/L 29.6 MEQ/L Anion Gap 5 MEQ/L 4 MEQ/L 5 MEQ/L Blood Urea Nitrogen 18 MG/DL 21 MG/DL 17 MG/DL Creatinine 1.15 MG/DL 1.32 MG/DL 1.15 MG/DL Estimat Glomerular Filtration 65 ML/MIN 55 ML/MIN 65 ML/MIN Rate Random Glucose 109 MG/DL 123 MG/DL 100 MG/DL Lactic Acid Level 0.9 mmol/L Calcium Level 8.5 MG/DL 8.6 MG/DL 7.9 MG/DL C-Reactive Protein 7.06 MG/DL Total Bilirubin 0.6 MG/DL Aspartate Amino Transf 9 U/L (AST/SGOT) Alanine Aminotransferase 19 U/L (ALT/SGPT) Alkaline Phosphatase 129 U/L Total Protein 6.5 GM/DL Albumin 3.0 GM/DL Microbiology Date/Time Procedure Status Source Growth 05/16/16 11:15 Aerobic Blood Culture - Preliminary Resulted Blood Peripheral NO GROWTH IN 1 DAY 05/16/16 11:15 Anaerobic Blood Culture - Preliminary Resulted Blood Peripheral NO GROWTH IN 1 DAY 05/16/16 11:20 Aerobic Blood Culture - Preliminary Resulted Blood Peripheral NO GROWTH IN 1 DAY 05/16/16 11:20 Anaerobic Blood Culture - Preliminary Resulted Blood Peripheral NO GROWTH IN 1 DAY 05/17/16 09:03 Cancelled Wound Foot 05/17/16 09:03 Gram Stain - Final Resulted Wound Foot 05/17/16 09:03 Wound Culture Resulted Wound Foot Pending Exam-Podiatry Constitutional General appearance: comfortable Nutritional status: normal Orientation: alert and oriented x3 Dermatological Exam Skin Temp - Right: Within Normal Limits Skin Texture - Right: Within Normal Limits Skin Elasticity - Right: Within Normal Limits Skin Tugor - Right: Within Normal Limits Hair Growth - Right: Within Normal Limits Pigmentation - Right: Within Normal Limits Skin Temp - Left: Within Normal Limits Skin Texture - Left: Within Normal Limits Skin Elasticity - Left: Within Normal Limits Skin Tugor - Left: Within Normal Limits Hair Growth - Left: Within Normal Limits Pigmentation - Left: Within Normal Limits Other: Scars, Surgery,Injury Surgical dressing is dry and intact of the right foot. Remaining digits are pink, lorenza upon compression and are warm. No signs of purulence Vascular/Lymphatic Exam R Dorsails Pedis: Palpable L Dorsails Pedis: Palpable R Posterior Tibial: Palpable L Posterior Tibial: Palpable Neurologic Exam Details No neurologic loss Musculoskeletal Exam Details Open amputation site second toe right foot Muscle Strength Dorsiflexion (Right): Normal Plantarflexion (Right): Normal Inversion (Right): Normal Eversion (Right): Normal Digital (Right): Normal Dorsiflexion (Left): Normal Plantarflexion (Left): Normal Inversion (Left): Normal Eversion (Left): Normal Digital (Left): Normal Foot Range of Motion Dorsiflexion (Right): Normal Plantarflexion (Right): Normal Inversion (Right): Normal Eversion (Right): Normal Digital (Right): Normal Dorsiflexion (Left): Normal Plantarflexion (Left): Normal Inversion (Left): Normal Eversion (Left): Normal Digital (Left): Normal Assessment & Plan Diagnosis: (1) Osteomyelitis Status: Resolved (2) Gangrene of toe Status: Resolved A/P PLAN: I would change the dressing to his right foot wound on Thursday. Once sterile cultures are obtained patient can be returned to the OR for primary closure of amputation site. Continue to follow Problem Qualifiers (1) Osteomyelitis: Qualified Code: M86.171 - Acute osteomyelitis of right foot Jeremiah Davidson DPM May 18, 2016 09:53
--- NOTE | 2016-05-18 11:49 | HHI.PR ---
Subjective Remarks No acute events overnight. Afebrile, vital signs stable. Patient with no complaints this morning. Denies fever/chills. Objective Vitals Vital Signs Date Time Temp Pulse Resp B/P Pulse Ox O2 Delivery O2 Flow Rate FiO2 05/18/16 08:00 95.9 50 17 114/71 98 05/18/16 05:00 18 05/18/16 04:00 97.0 66 20 96/56 100 05/18/16 00:00 96.9 53 20 94/50 97 05/17/16 21:00 18 05/17/16 20:00 96.8 54 18 96/56 98 05/17/16 16:40 94 21 05/17/16 12:00 98.0 63 18 138/78 98 I/O 05/17/16 05/17/16 05/17/16 05/18/16 05/18/16 05/18/16 07:00 15:00 23:00 07:00 15:00 23:00 Intake Total 240 ml 2012 ml 1160 ml 1375 ml Output Total 625 ml 550 ml 300 ml Balance 240 ml 1387 ml 610 ml 1075 ml Intake Oral 240 ml 560 ml 400 ml 240 ml IV Total 952 ml 760 ml 1135 ml Other 500 ml Output Urine Total 600 ml 550 ml 300 ml Estimated Blood Loss 25 ml # Voids 1 # Bowel Movements 0 0 0 0 Result Diagram: 05/18/1642305/18/16423 Objective Remarks Gen.: No acute distress Head: Normocephalic. Atraumatic. EENT: Pupils equal round and reactive to light. Nose without drainage. Airway intact. Throat without injection. Cardiovascular: Regular rate and rhythm. No murmurs, rubs or gallops. Respiratory: Lungs clear to auscultation bilaterally. No wheezes or rhonchi. Abdomen: Soft, nontender, nondistended. No peritoneal signs. Musculoskeletal: No gross deformities. No edema. Right lower extremity status post infiltration of second toe dressed. Dressing clean/dry/intact. Skin: No obvious rashes or erythema. Neuro: Sensory and motor grossly intact. Cranial nerves II through XII grossly intact. Psych: Appropriate mood and affect Procedures s/p Amputation of second toe right foot 05/17/16 A/P Problem List: (1) Cellulitis ICD Code: L03.90 Status: Acute (2) Gangrene of toe ICD Code: I96 Status: Resolved (3) Osteomyelitis ICD Code: M86.9 Status: Resolved (4) Schizophrenia ICD Code: F20.9 Status: Chronic Assessment and Plan 60-year-old male with Right second toe gangrene with osteomyelitis and cellulitis of the foot: Outside radiographic studies as well as in house Xray revealed osteomyelitis of phalanx .Status post Clindamycin IV 1, currently on vancomycin and Zosyn pending culture report. Podiatry consulted and patient is s/p Amputation of second toe right foot 05/17/16. Pain well-controlled. CTA aorta with runoff showed unremarkable examination. Leukocytosis: Secondary to above infectious process however now resolved, monitor CBC Mild acute renal failure: Gentle IV fluid hydration and monitor BUN and creatinine, improving. History of schizophrenia: Continue Abilify and Zoloft DVT prophylaxis: Heparin Case reviewed and discussed with the resident team. Agree with plan of care as discussed with me and documented in the resident note. Problem Qualifiers (1) Cellulitis: Qualified Code: L03.115 - Cellulitis of right lower extremity (2) Osteomyelitis: Qualified Code: M86.171 - Acute osteomyelitis of right foot Maeve Leyva MD R3 May 18, 2016 11:49 Nadeen Mahoney MD May 18, 2016 15:59
[2016-05-18] MEDS: HEPARIN SODIUM - SQ 10,000 UNITS/ML VIAL SQ SCH ×2 (15:33→19:52)
[2016-05-18] MEDS: ACETAMINOPHEN/HYDROcodone 325 MG/7.5 MG TAB PO PRN (19:51)
[2016-05-18] MEDS: LACTATED RINGER'S 1000 ML IV SCH (23:15)
[2016-05-19] VITALS: BP 106/66; PULSE 63; RESP 20; TEMP 97.5; O2SAT 97
[2016-05-19] MEDS: PIPERACIL-TAZO 3.375 GM PREMIX 50 ML IV SCH ×2 (04:09→12:18)
[2016-05-19] MEDS: VANCOMYCIN INJ 1,500 MG in SODIUM CHLORID 0.9% 500 ML INJ 500 ML IV SCH ×2 (04:49→15:28)
[2016-05-19 05:38] LABS: AUTOMATED NEUTROPHIL # 5.1 TH/MM3 (1.8-7.7); BASOPHIL # 0.3 TH/MM3 (0-0.2); BASOPHIL % 3.8 % (0.0-2.0); EOSINOPHIL # 0.2 TH/MM3 (0-0.4); EOSINOPHIL % 2.1 % (0.0-4.0); HEMATOCRIT 34.1 % (39.0-51.0); HEMO FLAGS DIFF FINAL; LYMPHOCYTE # 1.5 TH/MM3 (1.0-4.8); MEAN CELL VOLUME 83.6 FL (80.0-100.0); MEAN CORPUSCULAR HEMOGLOBIN 28.9 PG (27.0-34.0); MEAN CORPUSCULAR HGB CONC 34.6 % (32.0-36.0); MONO % 7.2 % (0.0-8.0); NEUT % 66.9 % (16.0-70.0); PLATELET COUNT 221 TH/MM3 (150-450); RED BLOOD COUNT 4.08 MIL/MM3 (4.50-5.90); RED CELL DISTRIBUTION WIDTH 13.4 % (11.6-17.2); WHITE BLOOD COUNT 7.6 TH/MM3 (4.0-11.0)
[2016-05-19 05:51] LABS: BICARBONATE 30.6 MEQ/L (21.0-32.0); POTASSIUM 4.2 MEQ/L (3.5-5.1)
[2016-05-19] MEDS: HEPARIN SODIUM - SQ 10,000 UNITS/ML VIAL SQ SCH ×3 (06:01→22:50)
[2016-05-19] MEDS: SERTRALINE HCL 100 MG TAB PO SCH (07:42)
[2016-05-19] MEDS: ARIPiprazole 30 MG TAB PO SCH (07:42)
[2016-05-19] MEDS: LACTOBACILLUS ACIDOPHILUS TAB PO SCH ×2 (07:42→20:01)
[2016-05-19] MEDS: SODIUM CHLORIDE 0.9% FLUSH 5 ML FLUSH IVF SCH ×2 (07:43→20:01)
[2016-05-19] MEDS: SODIUM CHLORIDE 0.9% FLUSH 5 ML FLUSH FLUSH SCH ×2 (07:43→20:00)
[2016-05-19 08:00] VITALS: BP 109/68; PULSE 60; RESP 18; TEMP 96.9; O2SAT 98
[2016-05-19 10:54] VITALS: O2SAT 95
[2016-05-19 12:00] VITALS: BP 118/70; PULSE 58; RESP 17; TEMP 97.9; O2SAT 97
--- NOTE | 2016-05-19 12:46 | PD.POD ---
Subjective Podiatric Problems History of gangrene and osteomyelitis second toe right foot 2 days status post amputation of second toe right foot Pain scale used: 0-10 numeric scale Pain score: 1 Remarks Patient is a 60-year-old white male presented with gangrene and osteomyelitis of the second toe with infected right forefoot. Thursday he underwent an amputation of the second toe with deep culture and sensitivity. The wound was packed open for later closure. There was minimal bleeding noted during surgery so patient was sent for a CTA which showed patent vessels all the way down to the toes. Patient is without complaints of pain or discomfort. He was sleeping when I came into the room. Past Med/Surg/Social History Past Medical History [facility] Reviewed: Yes Social History Smoking Status: Former Smoker Review of Systems Notes No changes in the patient's 14 point review of systems exam Objective Vital Signs Vital Signs Date Time Temp Pulse Resp B/P Pulse Ox O2 Delivery O2 Flow Rate FiO2 05/19/16 10:54 95 21 05/19/16 08:00 96.9 60 18 109/68 98 05/19/16 00:00 97.5 63 20 106/66 97 05/18/16 21:04 16 05/18/16 20:00 98.4 66 22 111/75 95 05/18/16 18:38 98 21 05/18/16 16:00 98.6 67 17 120/61 98 Coded Allergies: Niacin (Verified Allergy, Intermediate, 04/17/15) Medications and IVs Current Medications Ketorolac Tromethamine 30 mg 30 mg ONCE ONCE IVP Last administered on 16:27; Start 05/16/16 at 11:15; Stop 05/16/16 at 11:16; Status DC Clindamycin Phosphate/Sodium Chloride (Cleocin Inj/NS Inj) 104 ml @ 200 mls/hr ONCE ONCE IV Last administered on 05/16/16 16:52; Start 05/16/16 at 11:15; Stop 05/16/16 at 11:46; Status DC Tetanus/ Diphtheria Toxoids (Tetanus/ Diphtheria Tox Adult) 0.5 ml ONCE ONCE IM Last administered on 05/16/16 18:58; Start 05/16/16 at 11:15; Stop 05/16/16 at 11:16; Status DC IV Flush (NS Flush) 2 ml UNSCH PRN FLUSH FLUSH AFTER USING IV ACCESS; Start 05/16/16 at 14:15 IV Flush (NS Flush) 2 ml BID FLUSH Last administered on 05/19/16 07:43; Start 05/16/16 at 21:00 Acetaminophen (Tylenol) 650 mg Q4H PRN PO TEMP > 100.4; Start 05/16/16 at 14:15 Ondansetron HCl (Zofran Inj) 4 mg Q6H PRN IVP NAUSEA OR VOMITING; Start at 14:15 Sennosides (Senokot) 17.2 mg Q12H PRN PO CONSTIPATION; Start 05/16/16 at 14:15 Heparin Sodium (Porcine) (Heparin Inj) 5,000 units Q8H SQ Last administered on 05/19/16 06:01; Start 05/16/16 at 15:00 Acetaminophen (Tylenol) 650 mg Q6H PRN PO PAIN SCALE 1 TO 2; Start 05/16/16 at 14:15 Acetaminophen/ Hydrocodone Bitart ([place] 5-325 Mg) 1 tab Q4H PRN PO PAIN SCALE 3 TO 5; Start 05/16/16 at 14:15 Acetaminophen/ Hydrocodone Bitart ([place] 7.5-325 Mg) 1 tab Q4H PRN PO PAIN SCALE 6 TO 10 Last administered on 05/18/16 19:51; Start 05/16/16 at 14:15 Naloxone HCl (Narcan Inj) 0.4 mg UNSCH PRN IV SEE LABEL COMMENTS; Start at 14:15 Albuterol/ Ipratropium (Duoneb Neb) 1 ampule Q2HR NEB PRN NEB wheezing; Start 05/16/16 at 14:15 Enalaprilat 1.25 mg 1.25 mg Q6H PRN IV PUSH SBP>160, DBP>90; Start 05/16/16 at 14:15 Pharmacy Profile Note 0 ml @ 0 mls/hr UNSCH OTHER ; Start 05/16/16 at 14:15 Vancomycin HCl 1000 mg/Sodium Chloride 250 ml @ 250 mls/hr Q24H IV ; Start 05/16 at 14:15; Status UNV Piperacillin Sod/ Tazobactam Sod (Zosyn 3.375 Gm Premix) 50 ml @ 100 mls/hr Q8H IV Last administered on 05/19/16 12:18; Start 05/16/16 at 21:00 Lactobacillus Acidophilus 1 tab 1 tab Q12HR PO Last administered on 05/19/16 07 :42; Start 05/16/16 at 21:00 Vancomycin HCl/ Sodium Chloride (Vancomycin Inj/ NS 500 ml Inj) 515 ml @ 250 mls/hr Q12H IV Last administered on 05/19/16 04:49; Start 05/16/16 at 16:00 Miscellaneous Information SPECIFIC LAB TO BE ARNOL... ONCE ONCE XX Last administered on 05/18/16 04:27; Start 05/18/16 at 03:45; Stop 05/18/16 at 03:46; Status DC Vancomycin HCl 1000 mg/Sodium Chloride 250 ml @ 250 mls/hr NOW ONCE IV Last administered on 05/16/16 22:13; Start 05/16/16 at 22:00; Stop 05/16/16 at 22:59; Status DC Lactated Ringer's 1,000 ml @ 30 mls/hr Q24H IV ; Start 05/16/16 at 23:15 Sodium Chloride (NS 500 ml Inj) 500 ml @ 30 mls/hr [id number] IV ; Start 05/16/16 at 23:15; Stop 05/17/16 at 23:14; Status DC Insulin Human Regular (NovoLIN R INJ) See Protocol Table ... UNSCH X1 PRN SQ SEE PROTOCOL; Start 05/16/16 at 23:15; Stop 05/17/16 at 23:14; Status DC Metoprolol Tartrate (Lopressor) 25 mg UNSCH X1 PRN PO SEE LABEL COMMENTS; Start 05/16/16 at 23:15; Stop 05/17/16 at 23:14; Status Cancel Bupivacaine HCl (Marcaine Pf 0.5% Inj) 30 ml STK-MED ONCE .ROUTE Last administered on 05/17/16 08:52; Start 05/17/16 at 08:53; Stop 05/17/16 at 08:56; Status DC IV Flush (NS Flush) 2 ml UNSCH PRN IVF FLUSH AFTER USING IV ACCESS; Start at 09:15 IV Flush (NS Flush) 2 ml BID IVF ; Start 05/17/16 at 21:00 Miscellaneous Information (Post-op Orders (for Pharmacy)) STAT ONCE XX ; Start 05/17/16 at 09:15; Stop 05/17/16 at 09:29; Status DC Acetaminophen (Ofirmev Inj) 1,000 mg Q6H IV Last administered on 05/18/16 04:28 ; Start 05/17/16 at 10:00; Stop 05/18/16 at 04:01; Status DC Hydromorphone HCl (Dilaudid Pf Inj) 1 mg Q3H PRN IV BREAKTHROUGH PAIN; Start at 09:15 Oxycodone HCl (Roxicodone) 5 mg Q4H PRN PO PAIN SCALE 3 TO 5; Start 05/17/16 at 09:15 Hydromorphone HCl (Dilaudid) 2 mg Q4H PRN PO PAIN SCALE 6 TO 10; Start 05/17/16 at 09:15 Naloxone HCl (Narcan Inj) 0.4 mg UNSCH PRN IV SEE LABEL COMMENTS; Start at 09:15 Midazolam HCl (Versed Inj) 2 mg STK-MED ONCE .ROUTE ; Start 05/17/16 at 09:19; Stop 05/17/16 at 09:32; Status DC Fentanyl Citrate (fentaNYL INJ) 100 mcg STK-MED ONCE .ROUTE ; Start 05/17/16 at 09:20; Stop 05/17/16 at 09:32; Status DC Morphine Sulfate (Morphine Inj) 4 mg STK-MED ONCE .ROUTE ; Start 05/17/16 at 09: 20; Stop 05/17/16 at 09:32; Status DC Miscellaneous Information ALL NURSING DEPARTME... UNSCH PRN XX SEE LABEL COMMENTS; Start 05/17/16 at 10:30; Stop 05/18/16 at 10:29; Status DC Aripiprazole (Abilify) 30 mg DAILY PO Last administered on 05/19/16 07:42; Start 05/17/16 at 12:00 Sertraline HCl 100 mg 100 mg DAILY PO Last administered on 05/19/16 07:42; Start 05/17/16 at 12:00 Sodium Chloride (NS 1000 ml Inj) 1,000 ml @ 125 mls/hr Q8H IV Last administered on 05/18/16 08:53; Start 05/17/16 at 11:15; Stop 05/18/16 at 12:00; Status DC Iohexol (Omnipaque 350 Inj) 99 ml STK-MED ONCE IV Last administered on t 16:25; Start 05/17/16 at 16:25; Stop 05/17/16 at 16:26; Status DC Miscellaneous Information SPECIFIC LAB TO BE DRAWN:VANCOMYCIN TROUGH DATE TO... ONCE ONCE XX ; Start 05/20/16 at 03:45; Stop 05/20/16 at 03:46 Other Results Laboratory Tests Test 05/18/16 05/19/16 04:24 04:26 White Blood Count 7.5 TH/MM3 7.6 TH/MM3 Red Blood Count 4.14 MIL/MM3 4.08 MIL/MM3 Hemoglobin 11.7 GM/DL 11.8 GM/DL Hematocrit 34.9 % 34.1 % Mean Corpuscular Volume 84.3 FL 83.6 FL Mean Corpuscular Hemoglobin 28.3 PG 28.9 PG Mean Corpuscular Hemoglobin 33.6 % 34.6 % Concent Red Cell Distribution Width 13.7 % 13.4 % Platelet Count 187 TH/MM3 221 TH/MM3 Mean Platelet Volume 9.5 FL 9.3 FL Neutrophils (%) (Auto) 71.7 % 66.9 % Lymphocytes (%) (Auto) 17.1 % 20.0 % Monocytes (%) (Auto) 8.0 % 7.2 % Eosinophils (%) (Auto) 2.4 % 2.1 % Basophils (%) (Auto) 0.8 % 3.8 % Neutrophils # (Auto) 5.4 TH/MM3 5.1 TH/MM3 Lymphocytes # (Auto) 1.3 TH/MM3 1.5 TH/MM3 Monocytes # (Auto) 0.6 TH/MM3 0.6 TH/MM3 Eosinophils # (Auto) 0.2 TH/MM3 0.2 TH/MM3 Basophils # (Auto) 0.1 TH/MM3 0.3 TH/MM3 CBC Comment DIFF FINAL DIFF FINAL Differential Comment Laboratory Tests Test 05/18/16 05/19/16 04:24 04:26 Sodium Level 142 MEQ/L 143 MEQ/L Potassium Level 4.5 MEQ/L 4.2 MEQ/L Chloride Level 107 MEQ/L 107 MEQ/L Carbon Dioxide Level 29.6 MEQ/L 30.6 MEQ/L Anion Gap 5 MEQ/L 5 MEQ/L Blood Urea Nitrogen 17 MG/DL 11 MG/DL Creatinine 1.15 MG/DL 1.21 MG/DL Estimat Glomerular Filtration 65 ML/MIN 61 ML/MIN Rate Random Glucose 100 MG/DL 98 MG/DL Calcium Level 7.9 MG/DL 8.1 MG/DL Microbiology Date/Time Procedure Status Source Growth 05/17/16 09:03 Cancelled Wound Foot 05/17/16 09:03 Gram Stain - Final Resulted Wound Foot 05/17/16 09:03 Wound Culture - Preliminary Resulted Strep Not A,B D Exam-Podiatry Constitutional General appearance: comfortable Nutritional status: normal Orientation: alert and oriented x3 Dermatological Exam Skin Temp - Right: Within Normal Limits Skin Texture - Right: Within Normal Limits Skin Elasticity - Right: Within Normal Limits Skin Tugor - Right: Within Normal Limits Hair Growth - Right: Within Normal Limits Pigmentation - Right: Within Normal Limits Skin Temp - Left: Within Normal Limits Skin Texture - Left: Within Normal Limits Skin Elasticity - Left: Within Normal Limits Skin Tugor - Left: Within Normal Limits Hair Growth - Left: Within Normal Limits Pigmentation - Left: Within Normal Limits Other: Scars, Surgery,Injury Amputation site of the second toe is open and granulating. Minimal drainage noted. No odor present. Decreased erythema and edema noted. Vascular/Lymphatic Exam R Dorsails Pedis: Palpable L Dorsails Pedis: Palpable R Posterior Tibial: Palpable L Posterior Tibial: Palpable Neurologic Exam Details No neurological deficit Musculoskeletal Exam Details Open amputation second toe right foot Muscle Strength Dorsiflexion (Right): Normal Plantarflexion (Right): Normal Inversion (Right): Normal Eversion (Right): Normal Digital (Right): Normal Dorsiflexion (Left): Normal Plantarflexion (Left): Normal Inversion (Left): Normal Eversion (Left): Normal Digital (Left): Normal Foot Range of Motion Dorsiflexion (Right): Normal Plantarflexion (Right): Normal Inversion (Right): Normal Eversion (Right): Normal Digital (Right): Normal Dorsiflexion (Left): Normal Plantarflexion (Left): Normal Inversion (Left): Normal Eversion (Left): Normal Digital (Left): Normal Assessment & Plan Diagnosis: (1) Osteomyelitis Status: Resolved (2) Gangrene of toe Status: Resolved A/P PLAN: Dressing changed under aseptic conditions with packing of the wound with Maxorb extra AG. Nursing to change the dressing tomorrow and obtain a new culture and sensitivity. Once wound is clean he can be returned to the OR for primary closure. In 3 to follow. Problem Qualifiers (1) Osteomyelitis: Qualified Code: M86.171 - Acute osteomyelitis of right foot Jeremiah Davidson DPM May 19, 2016 12:46
[2016-05-19 16:00] VITALS: BP 127/76; PULSE 66; RESP 16; TEMP 96.6; O2SAT 97
--- NOTE | 2016-05-19 17:59 | HHI.PR ---
Subjective Remarks Follow up for R 2nd toe osteomyelitis s/p amputation. The patient reports his pain is fairly well controlled. Denies any fevers/chills. No acute events. Vital signs reviewed, stable. He has no other complaints at this time. Denies any diabetes. Objective Vitals Vital Signs Date Time Temp Pulse Resp B/P Pulse Ox O2 Delivery O2 Flow Rate FiO2 05/19/16 16:00 96.6 66 16 127/76 97 05/19/16 12:00 97.9 58 17 118/70 97 05/19/16 10:54 95 21 05/19/16 08:00 96.9 60 18 109/68 98 05/19/16 00:00 97.5 63 20 106/66 97 05/18/16 21:04 16 05/18/16 20:00 98.4 66 22 111/75 95 05/18/16 18:38 98 21 I/O 05/18/16 05/18/16 05/18/16 05/19/16 05/19/16 05/19/16 07:00 15:00 23:00 07:00 15:00 23:00 Intake Total 1375 ml 1723 ml 757 ml 979 ml 1416 ml Output Total 300 ml 1000 ml 1400 ml 1250 ml 1150 ml Balance 1075 ml 723 ml -643 ml -271 ml 266 ml Intake Oral 240 ml 500 ml 240 ml 240 ml 760 ml IV Total 1135 ml 1223 ml 517 ml 739 ml 656 ml Output Urine Total 300 ml 1000 ml 1400 ml 1250 ml 1150 ml # Bowel Movements 0 0 0 0 1 Result Diagram: 05/19/16 0426 05/19/16 0426 Imaging Last Impressions Aorta w/Runoff CTA 05/17/16 0000 Signed Impressions: Service Date/Time: Tuesday, May 17, 2016 16:04 - CONCLUSION: Unremarkable CTA runoff exam. Right inguinal hernia containing bowel Kentrell Zapata MD Foot X-Ray 05/16/16 0000 Signed Impressions: Service Date/Time: Monday, May 16, 2016 11:37 - CONCLUSION: Findings suspicious for osteomyelitis second toe. Mario Chavez MD FACR Chest X-Ray 05/16/16 0000 Signed Impressions: Service Date/Time: Monday, May 16, 2016 14:19 - CONCLUSION: Negative for an acute process Mario Chavez MD FACR Objective Remarks GENERAL: Well-developed well-nourished middle aged male patient in [facility]. SKIN: Warm and dry. HEAD: Atraumatic. Normocephalic. NECK: Trachea midline. CARDIOVASCULAR: Regular rate and rhythm. RESPIRATORY: No accessory muscle use. Clear to auscultation. Breath sounds equal bilaterally. GASTROINTESTINAL: Abdomen soft, non-tender, nondistended. Hepatic and splenic margins not palpable. MUSCULOSKELETAL: Extremities without clubbing, cyanosis, or edema. Right 2nd toe s/p amputation, wrapped in dressing/JEWELS, CDI. B/l feet warm with 2+ b/l pedal pulses. NEUROLOGICAL: Awake and alert. No obvious cranial nerve deficits. Motor grossly within normal limits. Normal speech. PSYCHIATRIC: Appropriate mood and affect; insight and judgment normal. Procedures s/p Amputation of second toe right foot 05/17/16 Medications and IVs Current Medications Medications (Trade) Dose Ordered Sig/Eric Route Start Time Stop Time Status Last Admin (NS Flush) 2 ml UNSCH PRN FLUSH 05/16/16 14:15 (NS Flush) 2 ml BID FLUSH 05/16/16 21:00 05/19/16 07:43 (Tylenol) 650 mg Q4H PRN PO 05/16/16 14:15 (Zofran Inj) 4 mg Q6H PRN IVP 05/16/16 14:15 (Senokot) 17.2 mg Q12H PRN PO 05/16/16 14:15 (Heparin Inj) 5,000 units Q8H SQ 05/16/16 15:00 05/19/16 15:27 (Tylenol) 650 mg Q6H PRN PO 05/16/16 14:15 ([place] 5-325 Mg) 1 tab Q4H PRN PO 05/16/16 14:15 ([place] 7.5-325 Mg) 1 tab Q4H PRN PO 05/16/16 14:15 05/18/16 19:51 (Narcan Inj) 0.4 mg UNSCH PRN IV 05/16/16 14:15 (Vasotec Inj) 1.25 mg Q6H PRN IV PUSH 05/16/16 14:15 Lactobacillus Acidophilus 1 tab 1 tab Q12HR PO 05/16/16 21:00 05/19/16 07:42 (Lr 1000 ml Inj) 1,000 ml @ 30 mls/hr Q24H IV 05/16/16 23:15 (NS Flush) 2 ml UNSCH PRN IVF 05/17/16 09:15 (NS Flush) 2 ml BID IVF 05/17/16 21:00 (Dilaudid Pf Inj) 1 mg Q3H PRN IV 05/17/16 09:15 (Roxicodone) 5 mg Q4H PRN PO 05/17/16 09:15 (Dilaudid) 2 mg Q4H PRN PO 05/17/16 09:15 (Narcan Inj) 0.4 mg UNSCH PRN IV 05/17/16 09:15 (Abilify) 30 mg DAILY PO 05/17/16 12:00 05/19/16 07:42 (Zoloft) 100 mg DAILY PO 05/17/16 12:00 05/19/16 07:42 Miscellaneous Information SPECIFIC LAB TO BE DRAWN:VANCOMYCIN TROUGH DATE TO... ONCE ONCE XX 05/20/16 03:45 05/20/16 03:46 (Rocephin Inj/NS Inj) 100 ml @ 200 mls/hr Q24H IV 05/19/16 18:00 UNV Urinary Catheter: No Vascular Central Line Catheter: No A/P Problem List: (1) Cellulitis ICD Code: L03.90 Status: Acute (2) Gangrene of toe ICD Code: I96 Status: Resolved (3) Osteomyelitis ICD Code: M86.9 Status: Resolved (4) Schizophrenia ICD Code: F20.9 Status: Chronic Assessment and Plan 60-year-old male with: Right second toe gangrene with osteomyelitis and cellulitis of the foot: Outpatient radiographic studies as well as Xray upon arrival revealed osteomyelitis of phalanx. -Given IV vancomycin and Zosyn -Pain well-controlled. -CTA aorta with runoff showed unremarkable examination. -Podiatry consulted, patient is s/p Amputation of second toe right foot 05/17. -Wound culture growing Strep, will de-escalate antibiotics to IV Rocephin 2GM daily -Wound currently packed, plan for primary closure in OR once wound is clean, per podiatry Leukocytosis: Secondary to above infectious process however now resolved. Monitor CBC. Patient afebrile. Acute Kidney Injury: Cr 1.32, previously 1.15. Given gentle IV fluid hydration. Monitor renal function, now improving, Cr 1.21. Avoid nephrotoxins. History of schizophrenia: Continue Abilify and Zoloft DVT prophylaxis: Heparin Written by Radha Benites, acting as scribe for Dr. Martinez on 05/19/16 at 18:05. The documentation accurately reflects the work performed [id number] by me on at 16:05. Problem Qualifiers (1) Cellulitis: Qualified Code: L03.115 - Cellulitis of right lower extremity (2) Osteomyelitis: Qualified Code: M86.171 - Acute osteomyelitis of right foot Radha Benites PA-C May 19, 2016 17:59 Rhiannon Martinez DO May 19, 2016 23:39
[2016-05-19 20:00] VITALS: BP 111/69; PULSE 58; RESP 18; TEMP 97; O2SAT 97
[2016-05-19] MEDS: cefTRIAXone INJ 2,000 MG in SODIUM CHLORIDE 0.9% INJ 100 ML IV SCH (20:01)
[2016-05-19] MEDS: LACTATED RINGER'S 1000 ML IV SCH (23:15)
[2016-05-20] VITALS: BP 130/74; PULSE 55; RESP 16; TEMP 97.2; O2SAT 95
[2016-05-20] MEDS ORDERED: PHARMACY ORDERED LAB XX ONE (03:45)
[2016-05-20] MEDS: HEPARIN SODIUM - SQ 10,000 UNITS/ML VIAL SQ SCH ×3 (06:41→23:37)
[2016-05-20] MEDS: SERTRALINE HCL 100 MG TAB PO SCH (07:44)
[2016-05-20] MEDS: SODIUM CHLORIDE 0.9% FLUSH 5 ML FLUSH IVF SCH ×2 (07:44→20:35)
[2016-05-20] MEDS: SODIUM CHLORIDE 0.9% FLUSH 5 ML FLUSH FLUSH SCH ×2 (07:44→20:34)
[2016-05-20] MEDS: LACTOBACILLUS ACIDOPHILUS TAB PO SCH ×2 (07:44→20:34)
[2016-05-20] MEDS: ARIPiprazole 30 MG TAB PO SCH (07:44)
[2016-05-20 08:00] VITALS: BP 115/74; PULSE 61; RESP 17; TEMP 97.1; O2SAT 98
[2016-05-20 12:00] VITALS: BP 122/72; PULSE 58; RESP 17; TEMP 95.8; O2SAT 96
--- NOTE | 2016-05-20 13:45 | HHI.PR ---
Subjective Remarks Follow up for R 2nd toe osteomyelitis s/p amputation. Mr. Garcia is doing well. No acute concerns. Denies any fever, chills. Tolerating diet well. Objective Vitals Vital Signs Date Time Temp Pulse Resp B/P Pulse Ox O2 Delivery O2 Flow Rate FiO2 05/20/16 12:00 95.8 58 17 122/72 96 05/20/16 08:00 97.1 61 17 115/74 98 05/20/16 00:00 97.2 55 16 130/74 95 05/19/16 20:00 97.0 58 18 111/69 97 05/19/16 16:00 96.6 66 16 127/76 97 I/O 05/19/16 05/19/16 05/19/16 05/20/16 05/20/16 05/20/16 07:00 15:00 23:00 07:00 15:00 23:00 Intake Total 979 ml 1416 ml 360 ml 240 ml Output Total 1250 ml 1150 ml 600 ml 900 ml Balance -271 ml 266 ml -240 ml -660 ml Intake Oral 240 ml 760 ml 360 ml 240 ml IV Total 739 ml 656 ml Output Urine Total 1250 ml 1150 ml 600 ml 900 ml # Bowel Movements 0 1 1 0 Result Diagram: 05/19/166 05/19/16 0426 Imaging Last Impressions Aorta w/Runoff CTA 05/17/16 0000 Signed Impressions: Service Date/Time: Tuesday, May 17, 2016 16:04 - CONCLUSION: Unremarkable CTA runoff exam. Right inguinal hernia containing bowel Kentrell Zapata MD Foot X-Ray 05/16/16 0000 Signed Impressions: Service Date/Time: Monday, May 16, 2016 11:37 - CONCLUSION: Findings suspicious for osteomyelitis second toe. Mario Chavez MD FACR Chest X-Ray 05/16/16 0000 Signed Impressions: Service Date/Time: Monday, May 16, 2016 14:19 - CONCLUSION: Negative for an acute process Mario Chavez MD FACR Objective Remarks GENERAL: Well-developed well-nourished middle aged male patient in [facility]. SKIN: Warm and dry. HEAD: Atraumatic. Normocephalic. NECK: Trachea midline. CARDIOVASCULAR: Regular rate and rhythm. RESPIRATORY: No accessory muscle use. Clear to auscultation. Breath sounds equal bilaterally. GASTROINTESTINAL: Abdomen soft, non-tender, nondistended. Hepatic and splenic margins not palpable. MUSCULOSKELETAL: Extremities without clubbing, cyanosis, or edema. Right 2nd toe s/p amputation, wrapped in dressing/JEWELS, CDI. B/l feet warm with 2+ b/l pedal pulses. NEUROLOGICAL: Awake and alert. No obvious cranial nerve deficits. Motor grossly within normal limits. Normal speech. PSYCHIATRIC: Appropriate mood and affect; insight and judgment normal. Procedures s/p Amputation of second toe right foot 05/17/16 A/P Problem List: (1) Cellulitis ICD Code: L03.90 Status: Acute (2) Gangrene of toe ICD Code: I96 Status: Resolved (3) Osteomyelitis ICD Code: M86.9 Status: Resolved (4) Schizophrenia ICD Code: F20.9 Status: Chronic Assessment and Plan 60-year-old male with: Right second toe gangrene with osteomyelitis and cellulitis of the foot: Outpatient radiographic studies as well as Xray upon arrival revealed osteomyelitis of phalanx. -Given IV vancomycin and Zosyn -Pain well-controlled. -CTA aorta with runoff showed unremarkable examination. -Podiatry consulted, patient is s/p Amputation of second toe right foot 05/17. -Wound culture growing Strep, will de-escalate antibiotics to IV Rocephin 2GM daily -Wound currently packed, plan for primary closure in OR once wound is clean, per podiatry - Discussed with Dr. Davidson. Waiting for the repeat culture results. - If the new cultures show no growth, we can discharge patient. Leukocytosis: Secondary to above infectious process however now resolved. Monitor CBC. Patient afebrile. Acute Kidney Injury: Cr 1.32, previously 1.15. Given gentle IV fluid hydration. Monitor renal function, now improving, Cr 1.21. Avoid nephrotoxins. History of schizophrenia: Continue Abilify and Zoloft DVT prophylaxis: Heparin Problem Qualifiers (1) Cellulitis: Qualified Code: L03.115 - Cellulitis of right lower extremity (2) Osteomyelitis: Qualified Code: M86.171 - Acute osteomyelitis of right foot Rhiannon Martinez DO May 20, 2016 13:45
[2016-05-20 16:00] VITALS: BP 114/75; PULSE 57; RESP 17; TEMP 95.6; O2SAT 96
[2016-05-20 20:02] VITALS: BP 108/69; PULSE 58; RESP 16; TEMP 96.7; O2SAT 93
[2016-05-20] MEDS: cefTRIAXone INJ 2,000 MG in SODIUM CHLORIDE 0.9% INJ 100 ML IV SCH (20:33)
[2016-05-20] MEDS: LACTATED RINGER'S 1000 ML IV SCH (23:15)
[2016-05-20 23:33] VITALS: BP 136/71; PULSE 58; RESP 20; TEMP 97.9; O2SAT 96
[2016-05-21] MEDS: HEPARIN SODIUM - SQ 10,000 UNITS/ML VIAL SQ SCH ×3 (05:48→22:53)
[2016-05-21 07:44] VITALS: BP 113/58; PULSE 57; RESP 18; TEMP 97; O2SAT 96
[2016-05-21] MEDS: SERTRALINE HCL 100 MG TAB PO SCH (08:32)
[2016-05-21] MEDS: ARIPiprazole 30 MG TAB PO SCH (08:32)
[2016-05-21] MEDS: LACTOBACILLUS ACIDOPHILUS TAB PO SCH ×2 (08:32→19:55)
[2016-05-21] MEDS: SODIUM CHLORIDE 0.9% FLUSH 5 ML FLUSH FLUSH SCH ×2 (08:33→19:55)
[2016-05-21] MEDS: SODIUM CHLORIDE 0.9% FLUSH 5 ML FLUSH IVF SCH ×2 (08:33→19:55)
[2016-05-21 12:00] VITALS: BP 125/67; PULSE 67; RESP 20; TEMP 96.9; O2SAT 99
--- NOTE | 2016-05-21 12:28 | PD.POD ---
Subjective Podiatric Problems History of gangrene and osteomyelitis second toe right foot status post amputation of second toe right foot Pain scale used: 0-10 numeric scale Pain score: 1 Remarks Patient is a 60-year-old white male presented with gangrene and osteomyelitis of the second toe with infected right forefoot. Thursday he underwent an amputation of the second toe with deep culture and sensitivity. The wound was packed open for later closure. There was minimal bleeding noted during surgery so patient was sent for a CTA which showed patent vessels all the way down to the toes. Patient is without complaints of pain or discomfort. He was sleeping when I came into the room. C&S obtained,yesterday, had no organisms on gram stain. Past Med/Surg/Social History Past Medical History [facility] Reviewed: Yes Social History Smoking Status: Former Smoker Review of Systems Notes No changes in his 14 point review of systems exam from the previous visit Objective Vital Signs Vital Signs Date Time Temp Pulse Resp B/P Pulse Ox O2 Delivery O2 Flow Rate FiO2 05/21/16 07:44 97.0 57 18 113/58 96 05/20/16 23:33 97.9 58 20 136/71 96 05/20/16 20:02 96.7 58 16 108/69 93 05/20/16 16:00 95.6 57 17 114/75 96 Coded Allergies: Niacin (Verified Allergy, Intermediate, 04/17/15) Medications and IVs Current Medications Ketorolac Tromethamine 30 mg 30 mg ONCE ONCE IVP Last administered on 16:27; Start 05/16/16 at 11:15; Stop 05/16/16 at 11:16; Status DC Clindamycin Phosphate/Sodium Chloride (Cleocin Inj/NS Inj) 104 ml @ 200 mls/hr ONCE ONCE IV Last administered on 05/16/16 16:52; Start 05/16/16 at 11:15; Stop 05/16/16 at 11:46; Status DC Tetanus/ Diphtheria Toxoids (Tetanus/ Diphtheria Tox Adult) 0.5 ml ONCE ONCE IM Last administered on 05/16/16 18:58; Start 05/16/16 at 11:15; Stop 05/16/16 at 11:16; Status DC IV Flush (NS Flush) 2 ml UNSCH PRN FLUSH FLUSH AFTER USING IV ACCESS; Start 05/16/16 at 14:15 IV Flush (NS Flush) 2 ml BID FLUSH Last administered on 05/21/16 08:33; Start 05/16/16 at 21:00 Acetaminophen (Tylenol) 650 mg Q4H PRN PO TEMP > 100.4; Start 05/16/16 at 14:15 Ondansetron HCl (Zofran Inj) 4 mg Q6H PRN IVP NAUSEA OR VOMITING; Start at 14:15 Sennosides (Senokot) 17.2 mg Q12H PRN PO CONSTIPATION; Start 05/16/16 at 14:15 Heparin Sodium (Porcine) (Heparin Inj) 5,000 units Q8H SQ Last administered on 05/21/16 05:48; Start 05/16/16 at 15:00 Acetaminophen (Tylenol) 650 mg Q6H PRN PO PAIN SCALE 1 TO 2; Start 05/16/16 at 14:15 Acetaminophen/ Hydrocodone Bitart ([place] 5-325 Mg) 1 tab Q4H PRN PO PAIN SCALE 3 TO 5; Start 05/16/16 at 14:15 Acetaminophen/ Hydrocodone Bitart ([place] 7.5-325 Mg) 1 tab Q4H PRN PO PAIN SCALE 6 TO 10 Last administered on 05/18/16 19:51; Start 05/16/16 at 14:15 Naloxone HCl (Narcan Inj) 0.4 mg UNSCH PRN IV SEE LABEL COMMENTS; Start at 14:15 Albuterol/ Ipratropium (Duoneb Neb) 1 ampule Q2HR NEB PRN NEB wheezing; Start 05/16/16 at 14:15 Enalaprilat 1.25 mg 1.25 mg Q6H PRN IV PUSH SBP>160, DBP>90; Start 05/16/16 at 14:15 Pharmacy Profile Note 0 ml @ 0 mls/hr UNSCH OTHER ; Start 05/16/16 at 14:15; Stop 05/19/16 at 18:01; Status DC Vancomycin HCl 1000 mg/Sodium Chloride 250 ml @ 250 mls/hr Q24H IV ; Start 05/16 at 14:15; Status UNV Piperacillin Sod/ Tazobactam Sod (Zosyn 3.375 Gm Premix) 50 ml @ 100 mls/hr Q8H IV Last administered on 05/19/16 12:18; Start 05/16/16 at 21:00; Stop at 18:01; Status DC Lactobacillus Acidophilus 1 tab 1 tab Q12HR PO Last administered on 05/21/16 08:32; Start 05/16/16 at 21:00 Vancomycin HCl/ Sodium Chloride (Vancomycin Inj/ NS 500 ml Inj) 515 ml @ 250 mls/hr Q12H IV Last administered on 05/19/16 15:28; Start 05/16/16 at 16:00; Stop 05/19/16 at 18:02; Status DC Miscellaneous Information SPECIFIC LAB TO BE ARNOL... ONCE ONCE XX Last administered on 05/18/16 04:27; Start 05/18/16 at 03:45; Stop 05/18/16 at 03:46; Status DC Vancomycin HCl 1000 mg/Sodium Chloride 250 ml @ 250 mls/hr NOW ONCE IV Last administered on 05/16/16 22:13; Start 05/16/16 at 22:00; Stop 05/16/16 at 22:59; Status DC Lactated Ringer's 1,000 ml @ 30 mls/hr Q24H IV ; Start 05/16/16 at 23:15 Sodium Chloride (NS 500 ml Inj) 500 ml @ 30 mls/hr [id number] IV ; Start 05/16/16 at 23:15; Stop 05/17/16 at 23:14; Status DC Insulin Human Regular (NovoLIN R INJ) See Protocol Table ... UNSCH X1 PRN SQ SEE PROTOCOL; Start 05/16/16 at 23:15; Stop 05/17/16 at 23:14; Status DC Metoprolol Tartrate (Lopressor) 25 mg UNSCH X1 PRN PO SEE LABEL COMMENTS; Start 05/16/16 at 23:15; Stop 05/17/16 at 23:14; Status Cancel Bupivacaine HCl (Marcaine Pf 0.5% Inj) 30 ml STK-MED ONCE .ROUTE Last administered on 05/17/16 08:52; Start 05/17/16 at 08:53; Stop 05/17/16 at 08:56; Status DC IV Flush (NS Flush) 2 ml UNSCH PRN IVF FLUSH AFTER USING IV ACCESS; Start at 09:15 IV Flush (NS Flush) 2 ml BID IVF Last administered on 05/20/16 20:35; Start at 21:00 Miscellaneous Information (Post-op Orders (for Pharmacy)) STAT ONCE XX ; Start 05/17/16 at 09:15; Stop 05/17/16 at 09:29; Status DC Acetaminophen (Ofirmev Inj) 1,000 mg Q6H IV Last administered on 05/18/16 04:28 ; Start 05/17/16 at 10:00; Stop 05/18/16 at 04:01; Status DC Hydromorphone HCl (Dilaudid Pf Inj) 1 mg Q3H PRN IV BREAKTHROUGH PAIN; Start at 09:15 Oxycodone HCl (Roxicodone) 5 mg Q4H PRN PO PAIN SCALE 3 TO 5; Start 05/17/16 at 09:15 Hydromorphone HCl (Dilaudid) 2 mg Q4H PRN PO PAIN SCALE 6 TO 10; Start 05/17/16 at 09:15 Naloxone HCl (Narcan Inj) 0.4 mg UNSCH PRN IV SEE LABEL COMMENTS; Start at 09:15 Midazolam HCl (Versed Inj) 2 mg STK-MED ONCE .ROUTE ; Start 05/17/16 at 09:19; Stop 05/17/16 at 09:32; Status DC Fentanyl Citrate (fentaNYL INJ) 100 mcg STK-MED ONCE .ROUTE ; Start 05/17/16 at 09:20; Stop 05/17/16 at 09:32; Status DC Morphine Sulfate (Morphine Inj) 4 mg STK-MED ONCE .ROUTE ; Start 05/17/16 at 09: 20; Stop 05/17/16 at 09:32; Status DC Miscellaneous Information ALL NURSING DEPARTME... UNSCH PRN XX SEE LABEL COMMENTS; Start 05/17/16 at 10:30; Stop 05/18/16 at 10:29; Status DC Aripiprazole (Abilify) 30 mg DAILY PO Last administered on 05/21/16 08:32; Start 05/17/16 at 12:00 Sertraline HCl 100 mg 100 mg DAILY PO Last administered on 05/21/16 08:32; Start 05/17/16 at 12:00 Sodium Chloride (NS 1000 ml Inj) 1,000 ml @ 125 mls/hr Q8H IV Last administered on 05/18/16 08:53; Start 05/17/16 at 11:15; Stop 05/18/16 at 12:00; Status DC Iohexol (Omnipaque 350 Inj) 99 ml STK-MED ONCE IV Last administered on 16:25; Start 05/17/16 at 16:25; Stop 05/17/16 at 16:26; Status DC Miscellaneous Information SPECIFIC LAB TO BE DRAWN:VANCOMYCIN TROUGH DATE TO... ONCE ONCE XX ; Start 05/20/16 at 03:45; Stop 05/20/16 at 03:45; Status DC Propofol (Diprivan 200 Mg/20 ml Inj) 200 mg STK-MED ONCE IV ; Start 05/17/16 at 12:00; Stop 05/19/16 at 13:00; Status DC Ondansetron HCl 4 mg 4 mg STK-MED ONCE IV PUSH ; Start 05/17/16 at 12:00; Stop at 13:00; Status DC Ceftriaxone Sodium/Sodium Chloride (Rocephin Inj/NS Inj) 100 ml @ 200 mls/hr Q24H IV Last administered on 05/20/16 20:33; Start 05/19/16 at 20:00 Other Results Microbiology Date/Time Procedure Status Source Growth 05/20/16 13:54 Gram Stain - Final Resulted Wound Foot 05/20/16 13:54 Wound Culture Resulted Wound Foot Pending Exam-Podiatry Constitutional General appearance: comfortable Nutritional status: normal Orientation: alert and oriented x3 Dermatological Exam Skin Temp - Right: Within Normal Limits Skin Texture - Right: Within Normal Limits Skin Elasticity - Right: Within Normal Limits Skin Tugor - Right: Within Normal Limits Hair Growth - Right: Within Normal Limits Pigmentation - Right: Within Normal Limits Skin Temp - Left: Within Normal Limits Skin Texture - Left: Within Normal Limits Skin Elasticity - Left: Within Normal Limits Skin Tugor - Left: Within Normal Limits Hair Growth - Left: Within Normal Limits Pigmentation - Left: Within Normal Limits Other: Scars, Surgery,Injury Dressing dry and intact. Toes warm, pink and lorenza upon compression. No signs of infection. Vascular/Lymphatic Exam R Dorsails Pedis: Palpable L Dorsails Pedis: Palpable R Posterior Tibial: Palpable L Posterior Tibial: Palpable Neurologic Exam Details No neurological deficit seen Musculoskeletal Exam Details Amputated second toe right foot Muscle Strength Dorsiflexion (Right): Normal Plantarflexion (Right): Normal Inversion (Right): Normal Eversion (Right): Normal Digital (Right): Normal Dorsiflexion (Left): Normal Plantarflexion (Left): Normal Inversion (Left): Normal Eversion (Left): Normal Digital (Left): Normal Foot Range of Motion Dorsiflexion (Right): Normal Plantarflexion (Right): Normal Inversion (Right): Normal Eversion (Right): Normal Digital (Right): Normal Dorsiflexion (Left): Normal Plantarflexion (Left): Normal Inversion (Left): Normal Eversion (Left): Normal Digital (Left): Normal Assessment & Plan Diagnosis: (1) Osteomyelitis Status: Resolved (2) Gangrene of toe Status: Resolved A/P PLAN: If culture and sensitivity remains negative I will return him to the OR on Thursday for primary closure. He will likely need to stay in the hospital through Thursday for the first dressing change at which time I will discharge him. We'll monitor. Problem Qualifiers (1) Osteomyelitis: Qualified Code: M86.171 - Acute osteomyelitis of right foot Jeremiah Davidson DPM May 21, 2016 12:27
[2016-05-21 16:00] VITALS: BP 121/77; PULSE 63; RESP 20; TEMP 97.4; O2SAT 95
--- NOTE | 2016-05-21 19:30 | HHI.PR ---
Subjective Remarks Follow up for R 2nd toe osteomyelitis s/p amputation. No acute concerns today. Denies any fever, chills. Tolerating diet well. Objective Vitals Vital Signs Date Time Temp Pulse Resp B/P Pulse Ox O2 Delivery O2 Flow Rate FiO2 05/21/16 16:00 97.4 63 20 121/77 95 05/21/16 12:00 96.9 67 20 125/67 99 05/21/16 07:44 97.0 57 18 113/58 96 05/20/16 23:33 97.9 58 20 136/71 96 05/20/16 20:02 96.7 58 16 108/69 93 I/O 05/20/16 05/20/16 05/20/16 05/21/16 05/21/16 05/21/16 07:00 15:00 23:00 07:00 15:00 23:00 Intake Total 240 ml 240 ml 580 ml 480 ml 1200 ml Output Total 900 ml 700 ml 500 ml 700 ml 1000 ml Balance -660 ml -460 ml 80 ml -220 ml 200 ml Intake Oral 240 ml 240 ml 580 ml 480 ml 1200 ml IV Total 0 ml Output Urine Total 900 ml 700 ml 500 ml 700 ml 1000 ml # Bowel Movements 0 0 0 Result Diagram: 05/19/1642505/19/16425 Objective Remarks GENERAL: Well-developed well-nourished middle aged male patient in [facility]. SKIN: Warm and dry. HEAD: Atraumatic. Normocephalic. NECK: Trachea midline. CARDIOVASCULAR: Regular rate and rhythm. RESPIRATORY: No accessory muscle use. Clear to auscultation. Breath sounds equal bilaterally. GASTROINTESTINAL: Abdomen soft, non-tender, nondistended. Hepatic and splenic margins not palpable. MUSCULOSKELETAL: Extremities without clubbing, cyanosis, or edema. Right 2nd toe s/p amputation, wrapped in dressing/JEWELS, CDI. B/l feet warm with 2+ b/l pedal pulses. NEUROLOGICAL: Awake and alert. No obvious cranial nerve deficits. Motor grossly within normal limits. Normal speech. PSYCHIATRIC: Appropriate mood and affect; insight and judgment normal. Procedures s/p Amputation of second toe right foot 05/17/16 A/P Problem List: (1) Cellulitis ICD Code: L03.90 Status: Acute (2) Gangrene of toe ICD Code: I96 Status: Resolved (3) Osteomyelitis ICD Code: M86.9 Status: Resolved (4) Schizophrenia ICD Code: F20.9 Status: Chronic Assessment and Plan 60-year-old male with: Right second toe gangrene with osteomyelitis and cellulitis of the foot: Outpatient radiographic studies as well as Xray upon arrival revealed osteomyelitis of phalanx. -Given IV vancomycin and Zosyn -Pain well-controlled. -CTA aorta with runoff showed unremarkable examination. -Podiatry consulted, patient is s/p Amputation of second toe right foot 05/17. -Wound culture growing Strep, will de-escalate antibiotics to IV Rocephin 2GM daily -Wound currently packed, plan for primary closure in OR once wound is clean, per podiatry - Discussed with Dr. Davidson. Repeat cultures showing GNR and Staph Aureus. - May need to adjust abx. Will follow Culture results. Leukocytosis: Secondary to above infectious process however now resolved. Monitor CBC. Patient afebrile. Acute Kidney Injury: Cr 1.32, previously 1.15. Given gentle IV fluid hydration. Monitor renal function, now improving, Cr 1.21. Avoid nephrotoxins. History of schizophrenia: Continue Abilify and Zoloft DVT prophylaxis: Heparin Problem Qualifiers (1) Cellulitis: Qualified Code: L03.115 - Cellulitis of right lower extremity (2) Osteomyelitis: Qualified Code: M86.171 - Acute osteomyelitis of right foot Rhiannon Martinez DO May 21, 2016 19:30
[2016-05-21] MEDS: cefTRIAXone INJ 2,000 MG in SODIUM CHLORIDE 0.9% INJ 100 ML IV SCH (19:55)
[2016-05-21 20:22] VITALS: BP 122/75; PULSE 54; RESP 18; TEMP 96.2; O2SAT 94
[2016-05-21] MEDS: LACTATED RINGER'S 1000 ML IV SCH (22:56)
[2016-05-22 00:14] VITALS: BP 120/73; PULSE 60; RESP 18; TEMP 96.7; O2SAT 97
[2016-05-22] MEDS: HEPARIN SODIUM - SQ 10,000 UNITS/ML VIAL SQ SCH ×3 (06:10→20:59)
[2016-05-22] MEDS: SERTRALINE HCL 100 MG TAB PO SCH (07:25)
[2016-05-22] MEDS: ARIPiprazole 30 MG TAB PO SCH (07:26)
[2016-05-22] MEDS: LACTOBACILLUS ACIDOPHILUS TAB PO SCH ×2 (07:26→20:59)
[2016-05-22] MEDS: SODIUM CHLORIDE 0.9% FLUSH 5 ML FLUSH IVF SCH ×2 (07:28→20:59)
[2016-05-22] MEDS: SODIUM CHLORIDE 0.9% FLUSH 5 ML FLUSH FLUSH SCH ×2 (07:29→20:59)
[2016-05-22 08:00] VITALS: BP 96/65; PULSE 52; RESP 16; TEMP 96.8; O2SAT 97
[2016-05-22] MEDS ORDERED: LEVOFLOXACIN 500 MG PREMIX INJ 100 ML IV SCH (08:45)
[2016-05-22 09:00] VITALS: BP 110/62
--- NOTE | 2016-05-22 09:09 | HHI.PR ---
Subjective Remarks Follow up for R 2nd toe osteomyelitis s/p amputation. Mr. Garcia is doing well. He is sitting in his chair. Denies any acute concerns. His BP was low this AM. However, he remains asymptomatic. Discussed with RN who will recheck BP. Objective Vitals Vital Signs Date Time Temp Pulse Resp B/P Pulse Ox O2 Delivery O2 Flow Rate FiO2 05/22/16 08:00 96.8 52 16 96/65 97 05/22/16 00:14 96.7 60 18 120/73 97 05/21/16 20:22 96.2 54 18 122/75 94 05/21/16 16:00 97.4 63 20 121/77 95 05/21/16 12:00 96.9 67 20 125/67 99 I/O 05/21/16 05/21/16 05/21/16 05/22/16 05/22/16 05/22/16 07:00 15:00 23:00 07:00 15:00 23:00 Intake Total 480 ml 1200 ml 660 ml 580 ml Output Total 700 ml 1000 ml 800 ml 600 ml Balance -220 ml 200 ml -140 ml -20 ml Intake Oral 480 ml 1200 ml 560 ml 580 ml IV Total 100 ml 0 ml Output Urine Total 700 ml 1000 ml 800 ml 600 ml # Bowel Movements 0 Result Diagram: 05/19/166 05/19/166 Imaging Last Impressions Aorta w/Runoff CTA 05/17/16 0000 Signed Impressions: Service Date/Time: Tuesday, May 17, 2016 16:04 - CONCLUSION: Unremarkable CTA runoff exam. Right inguinal hernia containing bowel Kentrell Zapata MD Foot X-Ray 05/16/16 0000 Signed Impressions: Service Date/Time: Monday, May 16, 2016 11:37 - CONCLUSION: Findings suspicious for osteomyelitis second toe. Mario Chavez MD FACR Chest X-Ray 05/16/16 0000 Signed Impressions: Service Date/Time: Monday, May 16, 2016 14:19 - CONCLUSION: Negative for an acute process Mario Chavez MD FACR Objective Remarks GENERAL: Well-developed well-nourished middle aged male patient in [facility]. SKIN: Warm and dry. HEAD: Atraumatic. Normocephalic. NECK: Trachea midline. CARDIOVASCULAR: Regular rate and rhythm. RESPIRATORY: No accessory muscle use. Clear to auscultation. Breath sounds equal bilaterally. GASTROINTESTINAL: Abdomen soft, non-tender, nondistended. Hepatic and splenic margins not palpable. MUSCULOSKELETAL: Extremities without clubbing, cyanosis, or edema. Right 2nd toe s/p amputation, wrapped in dressing/JEWELS, CDI. B/l feet warm with 2+ b/l pedal pulses. NEUROLOGICAL: Awake and alert. No obvious cranial nerve deficits. Motor grossly within normal limits. Normal speech. PSYCHIATRIC: Appropriate mood and affect; insight and judgment normal. Procedures s/p Amputation of second toe right foot 05/17/16 A/P Problem List: (1) Cellulitis ICD Code: L03.90 Status: Acute (2) Gangrene of toe ICD Code: I96 Status: Resolved (3) Osteomyelitis ICD Code: M86.9 Status: Resolved (4) Schizophrenia ICD Code: F20.9 Status: Chronic Assessment and Plan 60-year-old male with: Right second toe gangrene with osteomyelitis and cellulitis of the foot: Outpatient radiographic studies as well as Xray upon arrival revealed osteomyelitis of phalanx. - Given IV vancomycin and Zosyn - Pain well-controlled. - CTA aorta with runoff showed unremarkable examination. - Podiatry consulted, patient is s/p Amputation of second toe right foot 11/24. - Wound culture growing Strep, will de-escalate antibiotics to IV Rocephin 2GM daily - Wound currently packed, plan for primary closure in OR once wound is clean , per podiatry - Discussed with Dr. Davidson. Repeat cultures showing GNR and Staph Aureus. - Wound culture from 05/20/2016 --> Proteus Vulgaris, Staph Aureus - both sensitive to Levofloxacin. - Will d/c Ceftriaxone and start patient on Levaquin 750mg PO Qday. - Will discuss with Dr. Davidson. Leukocytosis: WBC on 05/19/2016 was 7.6. Acute Kidney Injury: Cr 1.32---> 1.21. History of schizophrenia: Continue Abilify and Zoloft Full code. DVT prophylaxis: Heparin Problem Qualifiers (1) Cellulitis: Qualified Code: L03.115 - Cellulitis of right lower extremity (2) Osteomyelitis: Qualified Code: M86.171 - Acute osteomyelitis of right foot Rhiannon Martinez DO May 22, 2016 9:09 am
[2016-05-22] MEDS: LEVOFLOXACIN 750 MG TAB PO SCH (09:20)
[2016-05-22 12:00] VITALS: BP 137/57; PULSE 63; RESP 16; TEMP 97.4; O2SAT 98
--- NOTE | 2016-05-22 12:02 | PD.POD ---
Subjective Podiatric Problems History of gangrene and osteomyelitis second toe right foot status post amputation of second toe right foot Pain scale used: 0-10 numeric scale Pain score: 1 Remarks Patient is a 60-year-old white male presented with gangrene and osteomyelitis of the second toe with infected right forefoot. Thursday he underwent an amputation of the second toe with deep culture and sensitivity. The wound was packed open for later closure. There was minimal bleeding noted during surgery so patient was sent for a CTA which showed patent vessels all the way down to the toes. Patient is without complaints of pain or discomfort. He was sleeping when I came into the room. Path report showed osteomyelitis and gangrene. Current culture is growing Proteus and staph. I added Levaquin to his antibiotics.. Past Med/Surg/Social History Past Medical History [facility] Reviewed: Yes Social History Smoking Status: Former Smoker Review of Systems Notes No changes in his 14 point review of systems exam from the previous visit Objective Vital Signs Vital Signs Date Time Temp Pulse Resp B/P Pulse Ox O2 Delivery O2 Flow Rate FiO2 05/22/16 09:00 110/62 05/22/16 08:00 96.8 52 16 96/65 97 05/22/16 00:14 96.7 60 18 120/73 97 05/21/16 20:22 96.2 54 18 122/75 94 05/21/16 16:00 97.4 63 20 121/77 95 05/21/16 12:00 96.9 67 20 125/67 99 Coded Allergies: Niacin (Verified Allergy, Intermediate, 04/17/15) Medications and IVs Current Medications Ketorolac Tromethamine 30 mg 30 mg ONCE ONCE IVP Last administered on 16:27; Start 05/16/16 at 11:15; Stop 05/16/16 at 11:16; Status DC Clindamycin Phosphate/Sodium Chloride (Cleocin Inj/NS Inj) 104 ml @ 200 mls/hr ONCE ONCE IV Last administered on 05/16/16 16:52; Start 05/16/16 at 11:15; Stop 05/16/16 at 11:46; Status DC Tetanus/ Diphtheria Toxoids (Tetanus/ Diphtheria Tox Adult) 0.5 ml ONCE ONCE IM Last administered on 05/16/16 18:58; Start 05/16/16 at 11:15; Stop 05/16/16 at 11:16; Status DC IV Flush (NS Flush) 2 ml UNSCH PRN FLUSH FLUSH AFTER USING IV ACCESS; Start 05/16/16 at 14:15 IV Flush (NS Flush) 2 ml BID FLUSH Last administered on 05/22/16 07:29; Start 05/16/16 at 21:00 Acetaminophen (Tylenol) 650 mg Q4H PRN PO TEMP > 100.4; Start 05/16/16 at 14:15 Ondansetron HCl (Zofran Inj) 4 mg Q6H PRN IVP NAUSEA OR VOMITING; Start at 14:15 Sennosides (Senokot) 17.2 mg Q12H PRN PO CONSTIPATION; Start 05/16/16 at 14:15 Heparin Sodium (Porcine) (Heparin Inj) 5,000 units Q8H SQ Last administered on 05/22/16 06:10; Start 05/16/16 at 15:00 Acetaminophen (Tylenol) 650 mg Q6H PRN PO PAIN SCALE 1 TO 2; Start 05/16/16 at 14:15 Acetaminophen/ Hydrocodone Bitart ([place] 5-325 Mg) 1 tab Q4H PRN PO PAIN SCALE 3 TO 5; Start 05/16/16 at 14:15 Acetaminophen/ Hydrocodone Bitart ([place] 7.5-325 Mg) 1 tab Q4H PRN PO PAIN SCALE 6 TO 10 Last administered on 05/18/16 19:51; Start 05/16/16 at 14:15 Naloxone HCl (Narcan Inj) 0.4 mg UNSCH PRN IV SEE LABEL COMMENTS; Start at 14:15 Albuterol/ Ipratropium (Duoneb Neb) 1 ampule Q2HR NEB PRN NEB wheezing; Start 05/16/16 at 14:15 Enalaprilat 1.25 mg 1.25 mg Q6H PRN IV PUSH SBP>160, DBP>90; Start 05/16/16 at 14:15 Pharmacy Profile Note 0 ml @ 0 mls/hr UNSCH OTHER ; Start 05/16/16 at 14:15; Stop 05/19/16 at 18:01; Status DC Vancomycin HCl 1000 mg/Sodium Chloride 250 ml @ 250 mls/hr Q24H IV ; Start 05/16 at 14:15; Status UNV Piperacillin Sod/ Tazobactam Sod (Zosyn 3.375 Gm Premix) 50 ml @ 100 mls/hr Q8H IV Last administered on 05/19/16 12:18; Start 05/16/16 at 21:00; Stop at 18:01; Status DC Lactobacillus Acidophilus 1 tab 1 tab Q12HR PO Last administered on 05/22/16 07:26; Start 05/16/16 at 21:00 Vancomycin HCl/ Sodium Chloride (Vancomycin Inj/ NS 500 ml Inj) 515 ml @ 250 mls/hr Q12H IV Last administered on 05/19/16 15:28; Start 05/16/16 at 16:00; Stop 05/19/16 at 18:02; Status DC Miscellaneous Information SPECIFIC LAB TO BE ARNOL... ONCE ONCE XX Last administered on 05/18/16 04:27; Start 05/18/16 at 03:45; Stop 05/18/16 at 03:46; Status DC Vancomycin HCl 1000 mg/Sodium Chloride 250 ml @ 250 mls/hr NOW ONCE IV Last administered on 05/16/16 22:13; Start 05/16/16 at 22:00; Stop 05/16/16 at 22:59; Status DC Lactated Ringer's 1,000 ml @ 30 mls/hr Q24H IV ; Start 05/16/16 at 23:15 Sodium Chloride (NS 500 ml Inj) 500 ml @ 30 mls/hr [id number] IV ; Start 05/16/16 at 23:15; Stop 05/17/16 at 23:14; Status DC Insulin Human Regular (NovoLIN R INJ) See Protocol Table ... UNSCH X1 PRN SQ SEE PROTOCOL; Start 05/16/16 at 23:15; Stop 05/17/16 at 23:14; Status DC Metoprolol Tartrate (Lopressor) 25 mg UNSCH X1 PRN PO SEE LABEL COMMENTS; Start 05/16/16 at 23:15; Stop 05/17/16 at 23:14; Status Cancel Bupivacaine HCl (Marcaine Pf 0.5% Inj) 30 ml STK-MED ONCE .ROUTE Last administered on 05/17/16 08:52; Start 05/17/16 at 08:53; Stop 05/17/16 at 08:56; Status DC IV Flush (NS Flush) 2 ml UNSCH PRN IVF FLUSH AFTER USING IV ACCESS; Start at 09:15 IV Flush (NS Flush) 2 ml BID IVF Last administered on 05/20/16 20:35; Start at 21:00 Miscellaneous Information (Post-op Orders (for Pharmacy)) STAT ONCE XX ; Start 05/17/16 at 09:15; Stop 05/17/16 at 09:29; Status DC Acetaminophen (Ofirmev Inj) 1,000 mg Q6H IV Last administered on 05/18/16 04:28 ; Start 05/17/16 at 10:00; Stop 05/18/16 at 04:01; Status DC Hydromorphone HCl (Dilaudid Pf Inj) 1 mg Q3H PRN IV BREAKTHROUGH PAIN; Start at 09:15 Oxycodone HCl (Roxicodone) 5 mg Q4H PRN PO PAIN SCALE 3 TO 5; Start 05/17/16 at 09:15 Hydromorphone HCl (Dilaudid) 2 mg Q4H PRN PO PAIN SCALE 6 TO 10; Start 05/17/16 at 09:15 Naloxone HCl (Narcan Inj) 0.4 mg UNSCH PRN IV SEE LABEL COMMENTS; Start at 09:15 Midazolam HCl (Versed Inj) 2 mg STK-MED ONCE .ROUTE ; Start 05/17/16 at 09:19; Stop 05/17/16 at 09:32; Status DC Fentanyl Citrate (fentaNYL INJ) 100 mcg STK-MED ONCE .ROUTE ; Start 05/17/16 at 09:20; Stop 05/17/16 at 09:32; Status DC Morphine Sulfate (Morphine Inj) 4 mg STK-MED ONCE .ROUTE ; Start 05/17/16 at 09: 20; Stop 05/17/16 at 09:32; Status DC Miscellaneous Information ALL NURSING DEPARTME... UNSCH PRN XX SEE LABEL COMMENTS; Start 05/17/16 at 10:30; Stop 05/18/16 at 10:29; Status DC Aripiprazole (Abilify) 30 mg DAILY PO Last administered on 1/12/17at 07:26; Start 05/17/16 at 12:00 Sertraline HCl 100 mg 100 mg DAILY PO Last administered on 05/22/16 07:25; Start 05/17/16 at 12:00 Sodium Chloride (NS 1000 ml Inj) 1,000 ml @ 125 mls/hr Q8H IV Last administered on 05/18/16 08:53; Start 05/17/16 at 11:15; Stop 05/18/16 at 12:00; Status DC Iohexol (Omnipaque 350 Inj) 99 ml STK-MED ONCE IV Last administered on 16:25; Start 05/17/16 at 16:25; Stop 05/17/16 at 16:26; Status DC Miscellaneous Information SPECIFIC LAB TO BE DRAWN:VANCOMYCIN TROUGH DATE TO... ONCE ONCE XX ; Start 05/20/16 at 03:45; Stop 05/20/16 at 03:45; Status DC Propofol (Diprivan 200 Mg/20 ml Inj) 200 mg STK-MED ONCE IV ; Start 05/17/16 at 12:00; Stop 05/19/16 at 13:00; Status DC Ondansetron HCl 4 mg 4 mg STK-MED ONCE IV PUSH ; Start 05/17/16 at 12:00; Stop at 13:00; Status DC Ceftriaxone Sodium 2000 mg/ Sodium Chloride 100 ml @ 200 mls/hr Q24H IV Last administered on 05/21/16 19:55; Start 05/19/16 at 20:00; Stop 05/22/16 at 09:08 ; Status DC Levofloxacin/ Dextrose (Levaquin 500 Mg Premix Inj) 100 ml @ 100 mls/hr Q24H IV ; Start 05/22/16 at 08:45; Stop 05/22/16 at 08:45; Status DC Levofloxacin (Levaquin) 750 mg DAILY PO Last administered on 05/22/16 09:20; Start 05/22/16 at 09:00 Other Results Microbiology Date/Time Procedure Status Source Growth 05/20/16 13:54 Gram Stain - Final Complete Wound Foot 05/20/16 13:54 Wound Culture - Final Complete Proteus Vulgaris Staphylococcus Aureus Exam-Podiatry Constitutional General appearance: comfortable Nutritional status: normal Orientation: alert and oriented x3 Dermatological Exam Skin Temp - Right: Within Normal Limits Skin Texture - Right: Within Normal Limits Skin Elasticity - Right: Within Normal Limits Skin Tugor - Right: Within Normal Limits Hair Growth - Right: Within Normal Limits Pigmentation - Right: Within Normal Limits Skin Temp - Left: Within Normal Limits Skin Texture - Left: Within Normal Limits Skin Elasticity - Left: Within Normal Limits Skin Tugor - Left: Within Normal Limits Hair Growth - Left: Within Normal Limits Pigmentation - Left: Within Normal Limits Vascular/Lymphatic Exam R Dorsails Pedis: Palpable L Dorsails Pedis: Palpable R Posterior Tibial: Palpable L Posterior Tibial: Palpable Neurologic Exam Details No neurological deficit seen Musculoskeletal Exam Details Amputation of the second toe right foot left open Assessment & Plan Diagnosis: (1) Osteomyelitis Status: Resolved (2) Gangrene of toe Status: Resolved A/P PLAN: Patient wants to go home and not wait for primary closure. We'll be okay to discharge on Thursday on Levaquin. Case management to arrange home health for dressing changes and follow-up with me in the wound center. Discussed with Dr. Martinez. Problem Qualifiers (1) Osteomyelitis: Qualified Code: M86.171 - Acute osteomyelitis of right foot Jeremiah Davidson DPM May 22, 2016 12:02
--- NOTE | 2016-05-22 15:31 | HHI.FF ---
Face to Face Verification Diagnosis: (1) Osteomyelitis (2) Gangrene of toe Home Health Nursing Order: Signs/symptoms of disease process Medication education-adverse effect Wound care and dressing changes Nursing assessment with vital signs Instructions: Please arrange home health care for the patient to change dressings to right foot wound two times per week. Pack wound with Maxorb extra AG. Cover with 4 x 4's and Juan roll. I have seen patient Wes Garcia on 05/22/16. My clinical findings support the need for the requested home health care services because: Ltd mobility - disease progression Patient has SOB Deconditioned w/ increased weakness Limited ability to care for self Need for psychosocial assistance Infection w/ risk of complications I certify that my clinical findings support that this patient is homebound because: Post-op weakness Unsteady gait/balance Unsafe to leave home unassisted Unable to use public transportation Rhiannon Martinez DO May 22, 2016 3:31 pm
[2016-05-22 18:00] VITALS: BP 112/87; PULSE 55; RESP 16; TEMP 96.4; O2SAT 96
[2016-05-22 20:00] VITALS: BP 126/70; PULSE 58; RESP 20; TEMP 96; O2SAT 98
[2016-05-22] MEDS: LACTATED RINGER'S 1000 ML IV SCH (23:15)
[2016-05-23] VITALS: BP 127/72; PULSE 68; RESP 20; TEMP 96.5; O2SAT 95
[2016-05-23] MEDS: HEPARIN SODIUM - SQ 10,000 UNITS/ML VIAL SQ SCH (05:30)
[2016-05-23] MEDS: SODIUM CHLORIDE 0.9% FLUSH 5 ML FLUSH IVF SCH (07:03)
[2016-05-23 08:00] VITALS: BP 121/71; PULSE 56; RESP 16; TEMP 97; O2SAT 96
[2016-05-23] MEDS: SERTRALINE HCL 100 MG TAB PO SCH (08:09)
[2016-05-23] MEDS: LEVOFLOXACIN 750 MG TAB PO SCH (08:09)
[2016-05-23] MEDS: ARIPiprazole 30 MG TAB PO SCH (08:09)
[2016-05-23] MEDS: LACTOBACILLUS ACIDOPHILUS TAB PO SCH (08:09)
[2016-05-23] MEDS ORDERED: RIFA300C2 PO (10:37)
[2016-05-23] MEDS ORDERED: HYDR-3580 PO (10:37)
[2016-05-23] MEDS ORDERED: LEVA750T PO (10:37)
--- NOTE | 2016-05-23 10:49 | HHI.DS ---
Discharge Summary Admission Date May 16, 2016 at 1:01 pm Discharge Date: May 23, 2016 Admitting Diagnosis right second toe osteomyelitis with cellulitis (1) Cellulitis ICD Code: L03.90 (2) Gangrene of toe ICD Code: I96 (3) Osteomyelitis ICD Code: M86.9 (4) Schizophrenia ICD Code: F20.9 Procedures s/p Amputation of second toe right foot 05/17/16 Brief History - From Admission 60-year-old male with a history of schizophrenia, known history of right second toe infection present to the ED for evaluation of worsening right second toe pain rated 10 out of 10 in intensity associated with swelling, redness and purulent discharge. Denies any febrile episode.Patient states he had two operations on his right 2nd toe over the past 12 years with significant improvement. However about 1 week ago he noticed increased swelling, redness and purulent discharge. He tried peroxide without any improvement. He noticed pain with ambulation and weight bearing on the right foot.patient denies any GI bleeding, SOB or chest pain CBC/BMP: 05/19/16 0426 05/19/16 0426 Imaging Last Impressions Aorta w/Runoff CTA 05/17/16 0000 Signed Impressions: Service Date/Time: Tuesday, May 17, 2016 16:04 - CONCLUSION: Unremarkable CTA runoff exam. Right inguinal hernia containing bowel Kentrell Zapata MD Foot X-Ray 05/16/16 0000 Signed Impressions: Service Date/Time: Monday, May 16, 2016 11:37 - CONCLUSION: Findings suspicious for osteomyelitis second toe. Mario Chavez MD FACR Chest X-Ray 05/16/16 0000 Signed Impressions: Service Date/Time: Monday, May 16, 2016 14:19 - CONCLUSION: Negative for an acute process Mario Chavez MD FACR PE at Discharge GENERAL: Well-developed well-nourished middle aged male patient in [facility]. SKIN: Warm and dry. HEAD: Atraumatic. Normocephalic. NECK: Trachea midline. CARDIOVASCULAR: Regular rate and rhythm. RESPIRATORY: No accessory muscle use. Clear to auscultation. Breath sounds equal bilaterally. GASTROINTESTINAL: Abdomen soft, non-tender, nondistended. Hepatic and splenic margins not palpable. MUSCULOSKELETAL: Extremities without clubbing, cyanosis, or edema. Right 2nd toe s/p amputation, wrapped in dressing/JEWELS, CDI. B/l feet warm with 2+ b/l pedal pulses. NEUROLOGICAL: Awake and alert. No obvious cranial nerve deficits. Motor grossly within normal limits. Normal speech. PSYCHIATRIC: Appropriate mood and affect; insight and judgment normal. Pt update on day of discharge Patient is doing well. No acute concerns. Denies any fever, chills. Hospital Course 60-year-old male with: Right second toe gangrene with osteomyelitis and cellulitis of the foot: Outpatient radiographic studies as well as Xray upon arrival revealed osteomyelitis of phalanx. - Given IV vancomycin and Zosyn - Pain well-controlled. - CTA aorta with runoff showed unremarkable examination. - Podiatry consulted, patient is s/p Amputation of second toe right foot 11/24. - Wound culture growing Strep, will de-escalate antibiotics to IV Rocephin 2GM daily - Wound currently packed, plan for primary closure in OR once wound is clean , per podiatry - Discussed with Dr. Davidson. Repeat cultures showing GNR and Staph Aureus. - Wound culture from 05/20/2016 --> Proteus Vulgaris, Staph Aureus - both sensitive to Levofloxacin. - On discharge, we will continue Levaquin and Rifampin for 6 weeks per [facility] antibiotic guide. Leukocytosis: WBC on 05/19/2016 was 7.6. Acute Kidney Injury: Cr 1.32---> 1.21. History of schizophrenia: Continue Abilify and Zoloft Pt Condition on Discharge: Good Discharge Disposition: Disch w/ Home Health Serv Discharge Time: > 30 minutes Discharge Instructions DIET: Follow Instructions for: As Tolerated, No Restrictions Activities you can perform: Regular-No Restrictions Follow up Referrals: PCP Follow-up - 1 Week Wound Care Clinic - 1 Week with Jeremiah Davidson DPM New Medications: Rifampin (Rifampin) 300 Mg Cap 600 MG PO DAILY Infection #42 Ref 6 CAP Hydrocodone-Acetaminophen (Hydrocodone-Acetaminophen) 7.5-325 mg Tab 1 TAB PO Q6HR ALT NEB PRN Pain #20 TAB Levofloxacin (Levaquin) 750 Mg Tab 750 MG PO DAILY Osteomyelitis #42 TAB Continued Medications: Aripiprazole (Abilify) 30 Mg Tab 30 MG PO DAILY #30 Ref 0 TAB Meloxicam (Meloxicam) 15 Mg Tab 15 MG PO DAILY Arthritis Pain #30 Ref 0 TAB Sertraline (Zoloft) 100 Mg Tab 100 MG PO DAILY #30 Ref 0 TAB Rhiannon Martinez DO May 23, 2016 10:49
[2016-05-23 12:00] VITALS: BP 105/64; PULSE 56; RESP 17; TEMP 96; O2SAT 98
[2016-05-23] MEDS ORDERED: WALKER WHEELS/F1 MIS (12:48)
== END 2016-05-23 14:03 | disposition home health service (06) | DRG 255 ==
LOC: NETRI 10:43 → NEDA 13:01 → N07A 21:16
PROVIDERS: ADMIT Hospitalist; ATTEND Hospitalist
PROC: 0Y6R0Z0 Detachment at Right 2nd Toe, Complete, Open Approach (ICD-10-PCS; principal; 2016-05-17 08:35)
DX: I96 Gangrene, not elsewhere classified (principal); G04.91 Myelitis, unspecified; N17.9 Acute kidney failure, unspecified; M86.171 Other acute osteomyelitis, right ankle and foot; L03.115 Cellulitis of right lower limb; F20.9 Schizophrenia, unspecified; Z72.0 Tobacco use
CPT/HCPCS: 71020; 73630; 75635; 80048; 80053; 80202; 83605; 85025; 85610; 86140; 86403; 87040; 87070; 87077; 87147; 87186; 87205; 88305; 88311; 90714; 93005; 93923; 99284; J0131; J0696; J1644; J1885; J2250; J2270; J2405; J2543; J3010; J3370; J7030; J7040; J7050; Q9967